=== PATIENT | female | born 1940 | race Caucasian/White ===

== ENCOUNTER 2017-03-24 12:19 | Emergency (ER) | payer MEDICARE, BC ==
[2017-03-24] MEDS ORDERED: Sodium Chloride 0.9% 10 ML Syringe FLUSH PRN (12:34)
[2017-03-24 12:46] VITALS: BP 160/92
--- NOTE | 2017-03-24 13:10 | CT ---
Head CT Technique: Multiple axial sections through the brain were obtained. Intravenous contrast was not utilized. Comparison: No previous intracranial imaging. Findings: Ventricles along with basal cisterns and sulci over the convexities are mildly prominent. No abnormal parenchymal densities are seen. No evidence of intracranial hemorrhage. No midline shift or mass effect is seen. Bone window settings were reviewed which shows no acute calvarial abnormality. Fluid is seen within the right sphenoid sinus with opacification of the left sphenoid sinus. Mild mucosal thickening is seen within the ethmoid sinuses. Atherosclerotic calcification is seen within the carotid siphon. Impression: 1. Sinus findings. Fluid within the sphenoid sinus could possibly represent change from acute sinusitis. 2. Mild senescent change. 3. No acute intracranial abnormality is seen. Diagnostic code #3
--- NOTE | 2017-03-24 13:30 | CR ---
Pelvis and left hip: AP view of the pelvis was obtained as well as AP and frog-leg lateral views of the left hip. Comparison: Previous right hip and pelvis study of 10/02/13. Mild joint space narrowing is seen within both hips. Findings are stable from prior exam. Findings are worse on the right side. Minimal sclerosis is seen within the inferior sacroiliac joints which is stable. No acute fracture or other bony abnormality is seen. Impression: 1. Slight degenerative change. Nothing acute is appreciated on AP pelvis or on two-view left hip exam. Diagnostic code #2
--- NOTE | 2017-03-24 15:04 | EDM.PDOC ---
ED HPI GENERAL MEDICAL PROBLEM - General Chief Complaint: Neurological Problem Stated Complaint: LEG PAIN Time Seen by Provider: 03/24/17 12:35 Source of Information: Reports: Patient, Family History Limitations: Reports: No Limitations - History of Present Illness INITIAL COMMENTS - FREE TEXT/NARRATIVE: The patient presents with left hip pain. She got up this morning and her left leg was weak and gave out. A stroke alert was called. Her last time know well was 10pm last night 03/23/17. She fell and hurt her left hip. She did not hit her head. She has no neck pain. She has no chest pain or shortness of breath. She has no abdominal pain, nausea or vomiting. She has no fever, chills, cough or dysuria. She has no history of stroke. Onset: Sudden Duration: Hour(s): Location: Reports: Lower Extremity, Left (hip) Quality: Reports: Sharp Severity: Moderate Improves with: Reports: Immobilization Worsens with: Reports: Movement Context: Reports: Activity (Getting out of bed she fell) Associated Symptoms: Denies: Chest Pain, Cough, Fever/Chills, Headaches, Nausea/ Vomiting, Shortness of Breath Left Leg Pain Score (Numeric/FACES): 8 - Related Data Allergies Allergy/AdvReac Type Severity Reaction Status Date / Time alendronate sodium Allergy Hives Verified 02/19/14 14:45 [From Fosamax] Home Meds: Home Meds Acetaminophen [Tylenol Arthritis Pain] 650 mg PO Q6H 10/02/13 [History] Aspirin [Shira Chewable] 81 mg PO DAILY 10/02/13 [History] Donepezil [Aricept] 10 mg PO DAILY 10/02/13 [History] Levothyroxine [Synthroid] 50 mcg PO ACBRK 10/02/13 [History] Sertraline [Zoloft] 50 mg PO DAILY 10/02/13 [History] Simvastatin [Zocor] 20 mg PO BEDTIME 10/02/13 [History] Triamterene/Hydrochlorothiazid [Triamterene-HCTZ 37.5-25 MG] 0.5 tab PO DAILY [History] Vitamin B Complex 1,000 mcg PO DAILY 10/02/13 [History] Metoprolol Succinate [Toprol XL] 50 mg PO DAILY #30 tab.sr.24h 10/03/13 [Rx] Levothyroxine [Synthroid] 100 mcg PO DAILY 03/24/17 [History] Melatonin [Melatin] 3 mg PO BEDTIME 03/24/17 [History] Memantine HCl [Namenda Xr] 28 mg PO BEDTIME 03/24/17 [History] Nitrofurantoin Zavala/Macrocryst [Macrobid] 100 mg PO BID #10 cap 03/24/17 [Rx] traMADol [Ultram] 50 mg PO BEDTIME 03/24/17 [History] Past Medical History HEENT History: Reports: Impaired Vision Cardiovascular History: Reports: High Cholesterol, Hypertension, [place] Respiratory History: Reports: Bronchitis, Recurrent Genitourinary History: Reports: Chronic Renal Insuffiency, UTI, Recurrent Other Genitourinary History: foes to [facility] nephology Musculoskeletal History: Reports: Arthritis, Back Pain, Chronic Other Musculoskeletal History: Dr. Coon give her injections to the right side-sacral illiac Psychiatric History: Reports: Anxiety, Depression Endocrine/Metabolic History: Reports: Hypoparathyroidism Oncologic (Cancer) History: Reports: Breast - Past Surgical History HEENT Surgical History: Reports: Cataract Surgery, Tonsillectomy Female Surgical History: Reports: Mastectomy Other Female Surgeries/Procedures: left side nov 2015-cancer;did not do chemo or radiation. Social & Family History - Tobacco Use Smoking Status *Q: Never Smoker - Caffeine Use Caffeine Use: Reports: Coffee, Tea - Alcohol Use Days Per Week of Alcohol Use: 0 - Recreational Drug Use Recreational Drug Use: No ED ROS GENERAL - Review of Systems Review Of Systems: See Below Constitutional: Reports: No Symptoms HEENT: Reports: No Symptoms Respiratory: Reports: No Symptoms Cardiovascular: Reports: No Symptoms Endocrine: Reports: No Symptoms GI/Abdominal: Reports: No Symptoms : Reports: No Symptoms Musculoskeletal: Reports: Joint Pain (Left hip) Skin: Reports: No Symptoms Neurological: Reports: No Symptoms ED EXAM, NEURO - Physical Exam Exam: See Below Exam Limited By: No Limitations General Appearance: Alert, No Apparent Distress Ears: Normal External Exam Nose: Normal Inspection Head Exam: Atraumatic, Normocephalic Neck: Normal Inspection Respiratory/Chest: No Respiratory Distress, Lungs Clear, Normal Breath Sounds Cardiovascular: Regular Rate, Rhythm, No Edema, No Murmur GI/Abdominal: Soft, Non-Tender, No Organomegaly, No Mass Neurological: Alert, No Motor/Sensory Deficits, Oriented x 3 Extremities: Other (Pain upon palpation to the left hip) EKG INTERPRETATION EKG Date: 03/24/17 Time: 12:42 Rhythm: NSR Rate (Beats/Min): 65 [place]: Normal P-Wave: Present QRS: Normal ST-T: Depressed (ST depression anterolateral leads) QT: Normal Comparison: No Change Course - Vital Signs Last Recorded V/S: Last Vital Signs Temp 99.1 F 03/24/17 12:42 Pulse 64 03/24/17 12:42 Resp 20 03/24/17 12:42 BP 160/92 H 03/24/17 12:42 Pulse Ox 100 03/24/17 12:42 - Orders/Labs/Meds Orders: Active Orders 24 hr Category Date Time Status Cardiac Monitoring [RC] . DIRECTED Care 03/24/17 12:34 Active EKG Documentation Completion [RC] STAT Care 03/24/17 12:35 Active Peripheral IV Care [RC] . DIRECTED Care 03/24/17 12:35 Active CULTURE URINE [RM] Stat Lab 03/24/17 15:18 Uncollected Sodium Chloride 0.9% [Saline Flush] Med 03/24/17 12:34 Active 10 ml FLUSH ASDIRECTED PRN Peripheral IV Insertion Adult [OM.PC] Stat Oth 03/24/17 12:34 Ordered Medication Orders Sodium Chloride (Saline Flush) 10 ml FLUSH ASDIRECTED PRN PRN Reason: Keep Vein Open Last Admin: 03/24/17 13:21 Dose: 10 ml Labs: Laboratory Tests 03/24/17 03/24/17 03/24/17 Range/Units 13:15 13:15 13:15 WBC 7.01 (3.98-10.04) K/mm3 RBC 4.51 (3.98-5.22) M/mm3 Hgb 13.7 (11.2-15.7) gm/L Hct 40.7 (34.1-44.9) % MCV 90.2 (79.4-94.8) fl MCH 30.4 (25.6-32.2) pg MCHC 33.7 (32.2-35.5) g/dl RDW Std Deviation 46.8 H (36.4-46.3) fL Plt Count 152 L (182-369) K/mm3 MPV 9.3 L (9.4-12.3) fl Neut % (Auto) 50.1 (34.0-71.1) % Lymph % (Auto) 34.0 (19.3-51.7) % Zavala % (Auto) 13.1 H (4.7-12.5) % Eos % (Auto) 2.1 (0.7-5.8) Baso % (Auto) 0.6 (0.1-1.2) % Neut # (Auto) 3.51 (1.56-6.13) K/mm3 Lymph # (Auto) 2.38 (1.18-3.74) K/mm3 Zavala # (Auto) 0.92 H (0.24-0.36) K/mm3 Eos # (Auto) 0.15 (0.04-0.36) K/mm3 Baso # (Auto) 0.04 (0.01-0.08) K/mm3 PT 10.3 (8.0-13.0) SECONDS INR 0.95 APTT 24 (22-36) SECONDS Sodium 141 (136-145) mEq/L Potassium 3.4 L (3.5-5.1) mEq/L Chloride 106 (98-107) mEq/L Carbon Dioxide 24 (21-32) mEq/L Anion Gap 14.4 (5-15) BUN 19 H (7-18) mg/dL Creatinine 1.5 H (0.55-1.02) mg/dL Est Cr Clr Drug Dosing 23.32 mL/min Estimated GFR (MDRD) 34 (>60) mL/min BUN/Creatinine Ratio 12.7 L (14-18) Glucose 83 (83-115) mg/dL Calcium 9.4 (8.5-10.1) mg/dL Total Bilirubin 0.7 (0.2-1.0) mg/dL AST 23 (15-37) U/L ALT 27 (14-59) U/L Alkaline Phosphatase 84 (46-116) U/L Troponin I < 0.017 (0.00-0.056) ng/mL Total Protein 6.8 (6.4-8.2) g/dl Albumin 3.4 (3.4-5.0) g/dl Globulin 3.4 gm/dL Albumin/Globulin Ratio 1.0 (1-2) Urine Color (Yellow) Urine Appearance (Clear) Urine pH (5.0-8.0) Ur Specific [place] (1.005-1.030) Urine Protein (Negative) Urine Glucose (UA) (Negative) Urine Ketones (Negative) Urine Occult Blood (Negative) Urine Nitrite (Negative) Urine Bilirubin (Negative) Urine Urobilinogen (0.2-1.0) Ur Leukocyte Esterase (Negative) Urine RBC (0-5) /hpf Urine WBC (0-5) /hpf Urine WBC Clumps (NOT SEEN) /hpf Ur Epithelial Cells (0-5) /hpf Urine Bacteria (FEW) /hpf Urine Mucus (FEW) /hpf 03/24/17 Range/Units 14:46 WBC (3.98-10.04) K/mm3 RBC (3.98-5.22) M/mm3 Hgb (11.2-15.7) gm/L Hct (34.1-44.9) % MCV (79.4-94.8) fl MCH (25.6-32.2) pg MCHC (32.2-35.5) g/dl RDW Std Deviation (36.4-46.3) fL Plt Count (182-369) K/mm3 MPV (9.4-12.3) fl Neut % (Auto) (34.0-71.1) % Lymph % (Auto) (19.3-51.7) % [place] % (Auto) (4.7-12.5) % Eos % (Auto) (0.7-5.8) Baso % (Auto) (0.1-1.2) % Neut # (Auto) (1.56-6.13) K/mm3 Lymph # (Auto) (1.18-3.74) K/mm3 [place] # (Auto) (0.24-0.36) K/mm3 Eos # (Auto) (0.04-0.36) K/mm3 Baso # (Auto) (0.01-0.08) K/mm3 PT (8.0-13.0) SECONDS INR APTT (22-36) SECONDS Sodium (136-145) mEq/L Potassium (3.5-5.1) mEq/L Chloride (98-107) mEq/L Carbon Dioxide (21-32) mEq/L Anion Gap (5-15) BUN (7-18) mg/dL Creatinine (0.55-1.02) mg/dL Est Cr Clr Drug Dosing mL/min Estimated GFR (MDRD) (>60) mL/min BUN/Creatinine Ratio (14-18) Glucose (83-115) mg/dL Calcium (8.5-10.1) mg/dL Total Bilirubin (0.2-1.0) mg/dL AST (15-37) U/L ALT (14-59) U/L Alkaline Phosphatase (46-116) U/L Troponin I (0.00-0.056) ng/mL Total Protein (6.4-8.2) g/dl Albumin (3.4-5.0) g/dl Globulin gm/dL Albumin/Globulin Ratio (1-2) Urine Color Yellow (Yellow) Urine Appearance Clear (Clear) Urine pH 8.5 H (5.0-8.0) Ur Specific [place] 1.020 (1.005-1.030) Urine Protein Negative (Negative) Urine Glucose (UA) Negative (Negative) Urine Ketones Negative (Negative) Urine Occult Blood Negative (Negative) Urine Nitrite Negative (Negative) Urine Bilirubin Negative (Negative) Urine Urobilinogen 0.2 (0.2-1.0) Ur Leukocyte Esterase Trace H (Negative) Urine RBC 0-5 (0-5) /hpf Urine WBC 5-10 H (0-5) /hpf Urine WBC Clumps Rare (NOT SEEN) /hpf Ur Epithelial Cells 0-5 (0-5) /hpf Urine Bacteria Few (FEW) /hpf Urine Mucus Not seen (FEW) /hpf Meds: Medications Generic Name Dose Route Start Last Admin Trade Name Freq PRN Reason Stop Dose Admin Sodium Chloride 10 ml 03/24/17 12:34 03/24/17 13:21 Saline Flush FLUSH 10 ml ASDIRECTED PRN Administration Keep Vein Open - Re-Assessments/Exams Free Text/Narrative Re-Assessment/Exam: 03/24/17 15:04 A stroke alert was called. The patient was last known well at 10pm last night. I ordered an IV saline lock, EKG, CT of her head, x-ray of left hip and pelvis , labs and UA. 03/24/17 15:[address] looks good. She has some sinus findings. Fluid within the sphenoid sinus could possibly represent change from acute sinusitis. Mild senescent changes. No acute intracranial abnormality is seen. Her EKG shows minimal ST depression to the anterolateral leads. This was seen on a prior EKG. Her CBC looks good. Her PT, INR and PTT all look good. Her K was a little low at 3.4. Her creatinine was elevated at 1.5. Her troponin was negative. Her UA shows a UTI. I will get her on macrobid and the x-ray of her left hip shows no fracture. She got up and walked to the bathroom and she did well. I will discharge her home. Departure - Departure Time of Disposition: 15:25 Disposition: Home, Self-Care 01 Condition: Good Clinical Impression: Fall Qualifiers: Encounter type: initial encounter Qualified Code(s): W19.XXXA - Unspecified fall, initial encounter Contusion of left hip Qualifiers: Encounter type: initial encounter Qualified Code(s): S70.02XA - Contusion of left hip, initial encounter UTI (urinary tract infection) Qualifiers: Urinary tract infection type: site unspecified Hematuria presence: without hematuria Qualified Code(s): N39.0 - Urinary tract infection, site not specified - Discharge Information Prescriptions: Nitrofurantoin Zavala/Macrocryst [Macrobid] 100 mg PO BID #10 cap Referrals: Flower Johnson, [employer] [Primary Care Provider] - 1 Week Forms: ED Department Discharge Additional Instructions: Take the macrobid 2 times per day for 5 days. Take tylenol or motrin for pain. Follow up with Flower if you do not feel better next week. Please return if you are worse. - My Orders Last 24 Hours: My Active Orders 03/24/17 12:34 Cardiac Monitoring [RC] . DIRECTED Sodium Chloride 0.9% [Saline Flush] 10 ml FLUSH ASDIRECTED PRN Peripheral IV Insertion Adult [OM.PC] Stat 03/24/17 12:35 EKG Documentation Completion [RC] STAT Peripheral IV Care [RC] . DIRECTED 03/24/17 15:18 CULTURE URINE [RM] Stat - Assessment/Plan Last 24 Hours: My Active Orders 03/24/17 12:34 Cardiac Monitoring [RC] . DIRECTED Sodium Chloride 0.9% [Saline Flush] 10 ml FLUSH ASDIRECTED PRN Peripheral IV Insertion Adult [OM.PC] Stat 03/24/17 12:35 EKG Documentation Completion [RC] STAT Peripheral IV Care [RC] . DIRECTED 03/24/17 15:18 CULTURE URINE [RM] Stat
== END 2017-03-24 15:50 | disposition home or self-care (01) ==
LOC: JD.ED 12:19
DX: S70.02XA Contusion of left hip, initial encounter (principal); N39.0 Urinary tract infection, site not specified; I10 Essential (primary) hypertension; Z79.2 Long term (current) use of antibiotics; Z88.8 Allergy status to other drugs, medicaments and biological substances; Z79.899 Other long term (current) drug therapy; W19.XXXA Unspecified fall, initial encounter
CPT/HCPCS: 36415; 70450; 73502; 80053; 81001; 84484; 85025; 85610; 85730; 87086; 93005; 99284; J7050; 93010; 99283-25

== ENCOUNTER 2017-09-08 19:58 | Observation (INO) | payer MEDICARE, BC ==
--- NOTE | 2017-09-08 20:40 | EDM.PDOC ---
ED HPI GENERAL MEDICAL PROBLEM - General Chief Complaint: Chest Pain Stated Complaint: RIGHT SIDE CHEST PAIN UNDER HER RIB TO HER BACK Time Seen by Provider: 09/08/17 20:11 Source of Information: Reports: Patient, Family (Daughter) History Limitations: Reports: Altered Mental Status (Dementia) - History of Present Illness INITIAL COMMENTS - FREE TEXT/NARRATIVE: The patient states that she developed pain to the right side of her chest, front and back, yesterday. Initially was minor, but has gotten worse. It waxes and wanes. The pain is made worse with deep breaths or movement of her right upper extremity, although her right upper extremity itself does not hurt. No recent injury. No recent fever. No recent cough. No recent dyspnea. No recent palpitations. No prior similar symptoms. The patient has not tried any home remedies or medicines. The patient's PCP is Flower Johnson. Right Chest Pain Score (Numeric/FACES): 8 - Related Data Allergies Allergy/AdvReac Type Severity Reaction Status Date / Time alendronate sodium Allergy Hives Verified 02/19/14 14:45 [From Fosamax] Home Meds: Home Meds Acetaminophen [Tylenol Arthritis Pain] 1,300 mg PO DAILY 10/02/13 [History] Aspirin [Shira Chewable] 81 mg PO DAILY 10/02/13 [History] Donepezil [Aricept] 10 mg PO DAILY 10/02/13 [History] Sertraline [Zoloft] 50 mg PO DAILY 10/02/13 [History] Simvastatin [Zocor] 20 mg PO BEDTIME 10/02/13 [History] Triamterene/Hydrochlorothiazid [Triamterene-HCTZ 37.5-25 MG] 1 tab PO DAILY 05/17 [History] Vitamin B Complex 1,000 mcg PO DAILY 10/02/13 [History] Levothyroxine [Synthroid] 100 mcg PO DAILY 03/24/17 [History] Melatonin [Melatin] 3 mg PO BEDTIME 03/24/17 [History] Memantine HCl [Namenda Xr] 28 mg PO BEDTIME 03/24/17 [History] traMADol [Ultram] 50 mg PO BEDTIME 03/24/17 [History] amLODIPine Besylate [Amlodipine Besylate] 10 mg PO DAILY 09/08/17 [History] Past Medical History HEENT History: Reports: Impaired Vision Cardiovascular History: Reports: High Cholesterol, Hypertension Genitourinary History: Reports: Chronic Renal Insuffiency Musculoskeletal History: Reports: Arthritis, Back Pain, Chronic (DDD) Psychiatric History: Reports: Anxiety, Depression Endocrine/Metabolic History: Reports: Hypothyroidism, Obesity/BMI 30+ Oncologic (Cancer) History: Reports: Breast (left) - Past Surgical History HEENT Surgical History: Reports: Cataract Surgery, Tonsillectomy Female Surgical History: Reports: D&C (x 1) Musculoskeletal Surgical History: Reports: Shoulder Surgery (right rotator cuff repair, open) Oncologic Surgical History: Reports: Mastectomy (left, November 2015) Social & Family History - Tobacco Use Smoking Status *Q: Never Smoker - Caffeine Use Caffeine Use: Reports: Coffee, Tea - Alcohol Use Alcohol Use History: Yes Alcohol Use Frequency: Rarely - Recreational Drug Use Recreational Drug Use: No - Living Situation & Occupation Living situation: Reports: , Alone Occupation: Retired ED ROS GENERAL - Review of Systems Review Of Systems: ROS reveals no pertinent complaints other than HPI. ED EXAM, GENERAL - Physical Exam Exam: See Below Exam Limited By: No Limitations General Appearance: Alert, WD/WN, Mild Distress (Appears uncomfortable) Eye Exam: Bilateral Eye: Normal Inspection Ears: Normal External Exam, Hearing Grossly Normal Nose: Normal Inspection, No Blood Throat/Mouth: Normal Inspection, Normal Lips, Normal Voice, No Airway Compromise Head: Atraumatic, Normocephalic Neck: Normal Inspection, Full Range of Motion Respiratory/Chest: No Respiratory Distress, Lungs Clear, Normal Breath Sounds, No Accessory Muscle Use, Chest Non-Tender (The patient confirms that the pain is where palpated on the right side of her chest, anterior and posterior, but minimal, if any, actual tenderness to palpation), Crackles (faint, bibasilar), Other (S/P left mastectomy). No: Rhonchi, Wheezing Cardiovascular: Normal Peripheral Pulses, Regular Rate, Rhythm, No Edema, No Gallop, No JVD, No Murmur, No Rub Peripheral Pulses: 4+: Radial (L), Radial (R) GI/Abdominal: Normal Bowel Sounds, Soft, Non-Tender, No Organomegaly, No Distention, No Abnormal Bruit, No Mass, Other (Obese) (Female) Exam: Deferred Rectal (Female) Exam: Deferred Back Exam: Normal Inspection, Full Range of Motion, NT Extremities: Normal Inspection, Normal Range of Motion, No Pedal Edema, Normal Capillary Refill Neurological: Alert, Oriented, Normal Cognition, No Motor/Sensory Deficits Psychiatric: Normal Affect Skin Exam: Warm, Dry, Intact, Normal Color, No Rash EKG INTERPRETATION EKG Date: 09/08/17 Time: 20:16 Rhythm: NSR Rate (Beats/Min): 76 [place]: Normal P-Wave: Present QRS: Normal ST-T: Normal QT: Normal Comparison: No Change (03/24/2017) Course - Vital Signs Last Recorded V/S: Last Vital Signs Temp 37.7 C 09/09/17 00:35 Pulse 76 09/08/17 20:07 Resp 21 H 09/08/17 20:07 BP 166/70 H 09/08/17 20:07 Pulse Ox 98 09/08/17 20:07 - Orders/Labs/Meds Orders: Active Orders 24 hr Category Date Time Status EKG Documentation Completion [RC] ASDIRECTED Care 09/08/17 20:20 Active Ang Chest [CT] Stat Exams 09/08/17 21:51 Taken Chest 2V [CR] Stat Exams 09/08/17 20:32 Taken Sodium Chloride 0.9% [Normal Saline] 1,000 ml Med 09/08/17 22:00 Active IV ASDIRECTED Sodium Chloride 0.9% [Normal Saline] 100 ml Med 09/08/17 23:15 Active IV ASDIRECTED Sodium Chloride 0.9% [Saline Flush] Med 09/08/17 23:11 Active 10 ml FLUSH ONETIME PRN EKG 12 Lead [EK] Stat Ther 09/08/17 20:20 Ordered Medication Orders Sodium Chloride (Normal Saline) 1,000 mls @ 150 mls/hr IV ASDIRECTED JUAN CARLOS Last Admin: 09/08/17 22:18 Dose: 150 mls/hr Sodium Chloride (Normal Saline) 100 mls @ 65 mls/hr IV ASDIRECTED JUAN CARLOS Last Admin: 09/08/17 23:30 Dose: 65 mls/hr Sodium Chloride (Saline Flush) 10 ml FLUSH ONETIME PRN PRN Reason: IV FLUSH Last Admin: 09/08/17 23:30 Dose: 10 ml Labs: Laboratory Tests 06/08/18 06/08/18 06/08/18 Range/Units 20:57 20:57 20:57 WBC 8.49 (3.98-10.04) K/mm3 RBC 4.50 (3.98-5.22) M/mm3 Hgb 13.5 (11.2-15.7) gm/L Hct 40.8 (34.1-44.9) % MCV 90.7 (79.4-94.8) fl MCH 30.0 (25.6-32.2) pg MCHC 33.1 (32.2-35.5) g/dl RDW Std Deviation 46.4 H (36.4-46.3) fL Plt Count 170 L (182-369) K/mm3 MPV 9.5 (9.4-12.3) fl Neutrophils % (Manual) 64 H (40-60) % Band Neutrophils % 0 (0-10) % Lymphocytes % (Manual) 28 (20-40) % Atypical Lymphs % 0 % Monocytes % (Manual) 4 (2-10) % Eosinophils % (Manual) 2 (0.7-5.8) % Basophils % (Manual) 2 H (0.1-1.2) Platelet Estimate Adequate RBC Morph Comment Normal PT 10.5 (9.5-12.1) SECONDS INR 0.96 APTT 25 (24-31) SECONDS D-Dimer, Quantitative 0.51 H (0.19-0.50) mg/L Sodium 143 (136-145) mEq/L Potassium 3.0 L (3.5-5.1) mEq/L Chloride 104 (98-107) mEq/L Carbon Dioxide 28 (21-32) mEq/L Anion Gap 14.0 (5-15) BUN 41 H (7-18) mg/dL Creatinine 2.1 H (0.55-1.02) mg/dL Est Cr Clr Drug Dosing 17.46 mL/min Estimated GFR (MDRD) 23 (>60) mL/min BUN/Creatinine Ratio 19.5 H (14-18) Glucose 114 (83-115) mg/dL Calcium 9.3 (8.5-10.1) mg/dL Total Bilirubin 0.4 (0.2-1.0) mg/dL AST 20 (15-37) U/L ALT 29 (14-59) U/L Alkaline Phosphatase 96 (46-116) U/L Troponin I < 0.017 (0.00-0.056) ng/mL Total Protein 7.6 (6.4-8.2) g/dl Albumin 3.4 (3.4-5.0) g/dl Globulin 4.2 gm/dL Albumin/Globulin Ratio 0.8 L (1-2) Urine Color (Yellow) Urine Appearance (Clear) Urine pH (5.0-8.0) Ur Specific [place] (1.005-1.030) Urine Protein (Negative) Urine Glucose (UA) (Negative) Urine Ketones (Negative) Urine Occult Blood (Negative) Urine Nitrite (Negative) Urine Bilirubin (Negative) Urine Urobilinogen (0.2-1.0) Ur Leukocyte Esterase (Negative) Urine RBC (0-5) /hpf Urine WBC (0-5) /hpf Ur Epithelial Cells (0-5) /hpf Amorphous Sediment (NOT SEEN) /hpf Urine Bacteria (FEW) /hpf Urine Mucus (FEW) /hpf 09/09/17 Range/Units 00:01 WBC (3.98-10.04) K/mm3 RBC (3.98-5.22) M/mm3 Hgb (11.2-15.7) gm/L Hct (34.1-44.9) % MCV (79.4-94.8) fl MCH (25.6-32.2) pg MCHC (32.2-35.5) g/dl RDW Std Deviation (36.4-46.3) fL Plt Count (182-369) K/mm3 MPV (9.4-12.3) fl Neutrophils % (Manual) (40-60) % Band Neutrophils % (0-10) % Lymphocytes % (Manual) (20-40) % Atypical Lymphs % % Monocytes % (Manual) (2-10) % Eosinophils % (Manual) (0.7-5.8) % Basophils % (Manual) (0.1-1.2) Platelet Estimate RBC Morph Comment PT (9.5-12.1) SECONDS INR APTT (24-31) SECONDS D-Dimer, Quantitative (0.19-0.50) mg/L Sodium (136-145) mEq/L Potassium (3.5-5.1) mEq/L Chloride (98-107) mEq/L Carbon Dioxide (21-32) mEq/L Anion Gap (5-15) BUN (7-18) mg/dL Creatinine (0.55-1.02) mg/dL Est Cr Clr Drug Dosing mL/min Estimated GFR (MDRD) (>60) mL/min BUN/Creatinine Ratio (14-18) Glucose (83-115) mg/dL Calcium (8.5-10.1) mg/dL Total Bilirubin (0.2-1.0) mg/dL AST (15-37) U/L ALT (14-59) U/L Alkaline Phosphatase (46-116) U/L Troponin I (0.00-0.056) ng/mL Total Protein (6.4-8.2) g/dl Albumin (3.4-5.0) g/dl Globulin gm/dL Albumin/Globulin Ratio (1-2) Urine Color Yellow (Yellow) Urine Appearance Clear (Clear) Urine pH 7.0 (5.0-8.0) Ur Specific [place] 1.015 (1.005-1.030) Urine Protein Negative (Negative) Urine Glucose (UA) Negative (Negative) Urine Ketones Negative (Negative) Urine Occult Blood Negative (Negative) Urine Nitrite Negative (Negative) Urine Bilirubin Negative (Negative) Urine Urobilinogen 0.2 (0.2-1.0) Ur Leukocyte Esterase 2+ H (Negative) Urine RBC 0-5 (0-5) /hpf Urine WBC 5-10 H (0-5) /hpf Ur Epithelial Cells 0-5 (0-5) /hpf Amorphous Sediment Moderate H (NOT SEEN) /hpf Urine Bacteria Rare (FEW) /hpf Urine Mucus Not seen (FEW) /hpf Meds: Medications Generic Name Dose Route Start Last Admin Trade Name Freq PRN Reason Stop Dose Admin Sodium Chloride 1,000 mls @ 150 mls/hr 09/08/17 22:00 09/08/17 22:18 Normal Saline IV 150 mls/hr ASDIRECTED JUAN CARLOS Administration Sodium Chloride 100 mls @ 65 mls/hr 09/08/17 23:15 09/08/17 23:30 Normal Saline IV 65 mls/hr ASDIRECTED JUAN CARLOS Administration Sodium Chloride 10 ml 09/08/17 23:11 09/08/17 23:30 Saline Flush FLUSH 10 ml ONETIME PRN Administration IV FLUSH Discontinued Medications Generic Name Dose Route Start Last Admin Trade Name Freq PRN Reason Stop Dose Admin Iopamidol 100 ml 09/08/17 23:11 09/08/17 23:30 Isovue-370 (76%) IVPUSH 09/08/17 23:12 100 ml ONETIME ONE Administration Orphenadrine Citrate 100 mg 09/08/17 23:40 09/08/17 23:51 Norflex PO 09/08/17 23:41 100 mg ONETIME STA Administration Orphenadrine Citrate Confirm 09/08/17 23:52 Norflex Administered 09/08/17 23:53 Dose 100 mg .ROUTE .STK-MED ONE Potassium Chloride 40 meq 09/08/17 21:52 09/08/17 22:09 Klor-Con M20 PO 09/08/17 21:53 40 meq ONETIME ONE Administration - Re-Assessments/Exams Free Text/Narrative Re-Assessment/Exam: 09/08/17 20:35 While the patient has pain to the right side of her chest, she is not really tender to palpation where she has pain. The fact that her pain is pleuritic and made worse with right upper extremity movement raises the concern of a pneumothorax or, possibly, a pulmonary embolus. The patient was offered pain medication during her workup, but declined. 09/08/17 20:58 2-view chest radiograph appears to be grossly normal. Cardiac silhouette is within normal limits. No pulmonary vascular congestion. No pleural effusions. No focal infiltrate. No pneumothorax. Formal read per the Radiologist pending. 09/08/17 21:59 The patient's potassium returned low at 3.0, and her BUN/Cr are elevated at 41/ 2.1. They were 29/1.8 on 06/12/2017, and the patient has known chronic kidney disease. Her platelets returned low at 170, and her d-dimer slightly elevated at 0.51, well within expected range for patient of this age with renal dysfunction. The remainder of her workup so far is unremarkable, and does not explain the cause of her right-sided chest pain. I very much doubt musculoskeletal etiology, as there is no one muscle that involves the front and the back of the chest. I therefore recommended a more thorough evaluation with a CT of the chest with IV contrast. I explained that the patient's renal function will likely worsen for 1 week, and that she will need to have a chemistry panel repeated on 09/11/2017, to make sure that she has not developed hyperkalemia or acidosis. The patient and her daughter expressed understanding, and the patient agreed to proceed with the study. 09/09/17 00:02 CT angiogram of the chest is read by [facility] as: No evidence for pulmonary emboli Small hiatal hernia Mild bibasal pulmonary traverses 09/09/17 00:05 Notified by Tenisha SHEPHERD that the patient has developed a temperature up to 101. The patient has provided a urine sample by clean catch. 09/09/17 00:59 Test results discussed with the patient and her daughter. The patient's daughter states that the patient is feeling much better following the Norflex, however, Norflex does not usually have much of an effect until about 12 hours after the first dose, therefore it is questionable if it could have had such an effect so quickly. Today's workup is essentially negative, and does not explain the cause of the patient's symptoms, however, the patient's daughter does not feel that the patient is fit to be discharged home, particularly since she has advanced Alzheimer's dementia. I will contact Dr. Hobbs to see if he would be willing to place the patient into observation. 09/09/17 01:[address] Hobbs at 01:01. He agrees to place the patient into observation. I will write bridge orders. Departure - Departure Time of Disposition: 01:04 Disposition: Refer to Observation Clinical Impression: Chest pain of unknown etiology, Chronic kidney disease, Hypokalemia - Discharge Information - My Orders Last 24 Hours: My Active Orders 09/08/17 20:20 EKG Documentation Completion [RC] ASDIRECTED EKG 12 Lead [EK] Stat 09/08/17 20:32 Chest 2V [CR] Stat 09/08/17 21:51 Ang Chest [CT] Stat 09/08/17 22:00 Sodium Chloride 0.9% [Normal Saline] 1,000 ml IV ASDIRECTED 09/08/17 23:11 Sodium Chloride 0.9% [Saline Flush] 10 ml FLUSH ONETIME PRN 09/08/17 23:15 Sodium Chloride 0.9% [Normal Saline] 100 ml IV ASDIRECTED - Assessment/Plan Last 24 Hours: My Active Orders 09/08/17 20:20 EKG Documentation Completion [RC] ASDIRECTED EKG 12 Lead [EK] Stat 09/08/17 20:32 Chest 2V [CR] Stat 09/08/17 21:51 Ang Chest [CT] Stat 09/08/17 22:00 Sodium Chloride 0.9% [Normal Saline] 1,000 ml IV ASDIRECTED 09/08/17 23:11 Sodium Chloride 0.9% [Saline Flush] 10 ml FLUSH ONETIME PRN 09/08/17 23:15 Sodium Chloride 0.9% [Normal Saline] 100 ml IV ASDIRECTED
[2017-09-08] MEDS ORDERED: Potassium Chloride 20 MEQ Tab.ER PO ONE (21:52)
[2017-09-08] MEDS ORDERED: Sodium Chloride 0.9% 1,000 ML IV SCH (22:00)
[2017-09-08] MEDS ORDERED: Sodium Chloride 0.9% 10 ML Syringe FLUSH PRN (23:11)
[2017-09-08] MEDS ORDERED: Iopamidol 755 Mg/ML 100 ML Bottle IVPUSH ONE (23:11)
[2017-09-08] MEDS ORDERED: Sodium Chloride 0.9% 100 ML IV SCH (23:15)
[2017-09-08] MEDS ORDERED: Orphenadrine 100 MG Tab.ER PO STA (23:40)
[2017-09-08] MEDS ORDERED: Orphenadrine 100 MG Tab.ER ONE (23:52)
[2017-09-09] MEDS ORDERED: HYDROmorphone 0.5 MG/0.5 ML SYRINGE IVPUSH PRN ×2 (03:27→07:10)
[2017-09-09] MEDS: Sodium Chloride 0.9% 1,000 ML IV SCH ×2 (06:28→16:34)
--- NOTE | 2017-09-09 07:07 | PCM.HP ---
H&P History of Present Illness - General Date of Service: 09/09/17 Admit Problem/Dx: Admission Diagnosis/Problem Admission Diagnosis/Problem Chest pain Source of Information: Patient, Old Records, Provider, RN Notes Reviewed History Limitations: Reports: No Limitations - History of Present Illness Initial Comments - Free Text/Narative: This is a 77 yo elderly white female with past medical hx/o Impaired Vision, HTN , HLD, CKD Stage, OA/DJD, Chronic Back Pain, Hypothyroidism, Anxiety, Depression and Obesity with BMI of 30+ who comes in for evaluation of sudden right sided chest pain with radiation to back that started yesterday. She carries a hx/o chronic back back s/p shoulder surgery. He pain is usually waxes and wanes in nature. Her pain sharp and made worse with movement and by taking deep breaths. She denies and recent trauma, injury or falls. Patient is on Tramadol but w/o much relief. Her initial work up in the emergency department shows a CBC remarkable for RDW of 46.4, Platelet count of 170, Neutrophils of 64% and Basophils of 2%. Her chemistry is significant for potassium of 3.0, BUN of 41, and Cr of 2.1. Her coagulation study is remarkable for D-dimer of 0.51. Her UDS is negative for UTI. Her CXR and CTA both show no acute abnormal findings. Her initial troponin level is negative. Patient is being admitted for Chest Pain r/o ACS and Intractable Pain. She is full code. Right Chest Pain Score (Numeric/FACES): 8 right posterior shoulder blade Pain Score (Numeric/FACES): 5 - Related Data Allergies/Adverse Reactions: Allergies Allergy/AdvReac Type Severity Reaction Status Date / Time alendronate sodium Allergy Hives Verified 09/09/17 08:31 [From Fosamax] Home Medications: Home Meds Acetaminophen [Tylenol Arthritis Pain] 1,300 mg PO DAILY 10/02/13 [History] Aspirin [Shira Chewable] 81 mg PO DAILY 10/02/13 [History] Donepezil [Aricept] 10 mg PO DAILY 10/02/13 [History] Simvastatin [Zocor] 20 mg PO BEDTIME 10/02/13 [History] Triamterene/Hydrochlorothiazid [Triamterene-HCTZ 37.5-25 MG] 1 tab PO DAILY 05/17 [History] Vitamin B Complex 1,000 mcg PO DAILY 10/02/13 [History] Melatonin [Melatin] 5 mg PO BEDTIME 03/24/17 [History] Memantine HCl [Namenda Xr] 28 mg PO BEDTIME 03/24/17 [History] traMADol [Ultram] 50 mg PO BEDTIME 03/24/17 [History] amLODIPine Besylate [Amlodipine Besylate] 5 mg PO DAILY 09/08/17 [History] Levothyroxine 125 mcg PO ACBREAKFAST 09/09/17 [History] Sertraline HCl 100 mg PO BEDTIME 09/09/17 [History] Past Medical History HEENT History: Reports: Impaired Vision Cardiovascular History: Reports: High Cholesterol, Hypertension Respiratory History: Reports: Bronchitis, Recurrent Genitourinary History: Reports: Chronic Renal Insuffiency Other Genitourinary History: foes to [facility] Musculoskeletal History: Reports: Arthritis, Back Pain, Chronic (DDD) Other Musculoskeletal History: Dr. Coon give her injections to the right side-sacral illiac Psychiatric History: Reports: Anxiety, Depression Endocrine/Metabolic History: Reports: Hypothyroidism, Obesity/BMI 30+ Oncologic (Cancer) History: Reports: Breast (left) - Past Surgical History HEENT Surgical History: Reports: Cataract Surgery, Tonsillectomy Female Surgical History: Reports: D&C (x 1) Musculoskeletal Surgical History: Reports: Shoulder Surgery (right rotator cuff repair, open) Oncologic Surgical History: Reports: Mastectomy (left, November 2015) Social & Family History - Tobacco Use Smoking Status *Q: Never Smoker Second Hand Smoke Exposure: No - Caffeine Use Caffeine Use: Reports: Coffee, Tea Other Caffeine Use: couple of cups of coffee everyday, sometimes a tea - Recreational Drug Use Recreational Drug Use: No - Living Situation & Occupation Living situation: Reports: , Alone Occupation: Retired H&P Review of Systems - Review of Systems: Review Of Systems: ROS reveals no pertinent complaints other than HPI. Exam - Exam Exam: See Below - Vital Signs Vital Signs: Last Vital Signs Temp 37.7 C 09/09/17 00:35 Pulse 76 09/08/17 20:07 Resp 21 H 09/08/17 20:07 BP 166/70 H 09/08/17 20:07 Pulse Ox 98 09/08/17 20:07 Weight: 81.737 kg - Exam General: Alert, Oriented, Cooperative, Other (Obese). No: Mild Distress HEENT: Conjunctiva Clear, EACs Clear, EOMI, Hearing Intact, Mucosa Moist & [place] , Nares Patent, Normal Nasal Septum, Posterior Pharynx Clear, Pupils Equal, Pupils Reactive Neck: Supple, Trachea Midline, Full Range of Motion. No: JVD Lungs: Normal Respiratory Effort, Decreased Breath Sounds Cardiovascular: Regular Rate, Regular Rhythm, Other (chest tenderness on palpation) GI/Abdominal Exam: Normal Bowel Sounds, Soft, Non-Tender, No Organomegaly, No Distention, No Abnormal Bruit, No Mass (Female) Exam: Deferred Rectal (Female) Exam: Deferred Back Exam: Normal Inspection, Decreased Range of Motion Extremities: Normal Inspection, Normal Range of Motion, Non-Tender, No Pedal Edema, Normal Capillary Refill, Other (Right Shoulder: Limited ROM and Pain with Movement) Peripheral Pulses: 2+: Posterior Tibial (L), Posterior Tibial (R), Dorsalis Pedis (L), Dorsalis Pedis (R) Skin: Warm, Dry, Intact Neuro Extensive - Mental Status: Normal Mood/Affect, Normal Cognition Neuro Extensive - Motor, Sensory, Reflexes: CN II-XII Intact (limited but grossly intact), Normal Gait Psychiatric: Alert, Normal Affect, Normal Mood - Patient Data Lab Results Last 24 hrs: Laboratory Results - last 24 hr 09/08/17 09/08/17 09/08/17 Range/Units 20:57 20:57 20:57 WBC 8.49 (3.98-10.04) K/mm3 RBC 4.50 (3.98-5.22) M/mm3 Hgb 13.5 (11.2-15.7) gm/L Hct 40.8 (34.1-44.9) % MCV 90.7 (79.4-94.8) fl MCH 30.0 (25.6-32.2) pg MCHC 33.1 (32.2-35.5) g/dl RDW Std Deviation 46.4 H (36.4-46.3) fL Plt Count 170 L (182-369) K/mm3 MPV 9.5 (9.4-12.3) fl Neutrophils % (Manual) 64 H (40-60) % Band Neutrophils % 0 (0-10) % Lymphocytes % (Manual) 28 (20-40) % Atypical Lymphs % 0 % Monocytes % (Manual) 4 (2-10) % Eosinophils % (Manual) 2 (0.7-5.8) % Basophils % (Manual) 2 H (0.1-1.2) Platelet Estimate Adequate RBC Morph Comment Normal PT 10.5 (9.5-12.1) SECONDS INR 0.96 APTT 25 (24-31) SECONDS D-Dimer, Quantitative 0.51 H (0.19-0.50) mg/L Sodium 143 (136-145) mEq/L Potassium 3.0 L (3.5-5.1) mEq/L Chloride 104 (98-107) mEq/L Carbon Dioxide 28 (21-32) mEq/L Anion Gap 14.0 (5-15) BUN 41 H (7-18) mg/dL Creatinine 2.1 H (0.55-1.02) mg/dL Est Cr Clr Drug Dosing 17.46 mL/min Estimated GFR (MDRD) 23 (>60) mL/min BUN/Creatinine Ratio 19.5 H (14-18) Glucose 114 (83-115) mg/dL Calcium 9.3 (8.5-10.1) mg/dL Total Bilirubin 0.4 (0.2-1.0) mg/dL AST 20 (15-37) U/L ALT 29 (14-59) U/L Alkaline Phosphatase 96 (46-116) U/L Troponin I < 0.017 (0.00-0.056) ng/mL Total Protein 7.6 (6.4-8.2) g/dl Albumin 3.4 (3.4-5.0) g/dl Globulin 4.2 gm/dL Albumin/Globulin Ratio 0.8 L (1-2) Urine Color (Yellow) Urine Appearance (Clear) Urine pH (5.0-8.0) Ur Specific [place] (1.005-1.030) Urine Protein (Negative) Urine Glucose (UA) (Negative) Urine Ketones (Negative) Urine Occult Blood (Negative) Urine Nitrite (Negative) Urine Bilirubin (Negative) Urine Urobilinogen (0.2-1.0) Ur Leukocyte Esterase (Negative) Urine RBC (0-5) /hpf Urine WBC (0-5) /hpf Ur Epithelial Cells (0-5) /hpf Amorphous Sediment (NOT SEEN) /hpf Urine Bacteria (FEW) /hpf Urine Mucus (FEW) /hpf 09/09/17 Range/Units 00:01 WBC (3.98-10.04) K/mm3 RBC (3.98-5.22) M/mm3 Hgb (11.2-15.7) gm/L Hct (34.1-44.9) % MCV (79.4-94.8) fl MCH (25.6-32.2) pg MCHC (32.2-35.5) g/dl RDW Std Deviation (36.4-46.3) fL Plt Count (182-369) K/mm3 MPV (9.4-12.3) fl Neutrophils % (Manual) (40-60) % Band Neutrophils % (0-10) % Lymphocytes % (Manual) (20-40) % Atypical Lymphs % % Monocytes % (Manual) (2-10) % Eosinophils % (Manual) (0.7-5.8) % Basophils % (Manual) (0.1-1.2) Platelet Estimate RBC Morph Comment PT (9.5-12.1) SECONDS INR APTT (24-31) SECONDS D-Dimer, Quantitative (0.19-0.50) mg/L Sodium (136-145) mEq/L Potassium (3.5-5.1) mEq/L Chloride (98-107) mEq/L Carbon Dioxide (21-32) mEq/L Anion Gap (5-15) BUN (7-18) mg/dL Creatinine (0.55-1.02) mg/dL Est Cr Clr Drug Dosing mL/min Estimated GFR (MDRD) (>60) mL/min BUN/Creatinine Ratio (14-18) Glucose (83-115) mg/dL Calcium (8.5-10.1) mg/dL Total Bilirubin (0.2-1.0) mg/dL AST (15-37) U/L ALT (14-59) U/L Alkaline Phosphatase (46-116) U/L Troponin I (0.00-0.056) ng/mL Total Protein (6.4-8.2) g/dl Albumin (3.4-5.0) g/dl Globulin gm/dL Albumin/Globulin Ratio (1-2) Urine Color Yellow (Yellow) Urine Appearance Clear (Clear) Urine pH 7.0 (5.0-8.0) Ur Specific [place] 1.015 (1.005-1.030) Urine Protein Negative (Negative) Urine Glucose (UA) Negative (Negative) Urine Ketones Negative (Negative) Urine Occult Blood Negative (Negative) Urine Nitrite Negative (Negative) Urine Bilirubin Negative (Negative) Urine Urobilinogen 0.2 (0.2-1.0) Ur Leukocyte Esterase 2+ H (Negative) Urine RBC 0-5 (0-5) /hpf Urine WBC 5-10 H (0-5) /hpf Ur Epithelial Cells 0-5 (0-5) /hpf Amorphous Sediment Moderate H (NOT SEEN) /hpf Urine Bacteria Rare (FEW) /hpf Urine Mucus Not seen (FEW) /hpf Result Diagrams: 09/08/17 20:57 09/09/17 05:40 EKG INTERPRETATION EKG Date: 09/08/17 Time: 20:16 Rhythm: NSR Rate (Beats/Min): 76 [place]: Normal P-Wave: Present QRS: Normal ST-T: Normal QT: Normal Comparison: Change From Previous EKG Problem List Initiated/Reviewed/Updated: Yes Orders Last 24hrs: Active Orders 24 hr Category Date Time Status Patient Status [ADT] Routine ADT 09/09/17 01:17 Active Ang Chest [CT] Stat Exams 09/08/17 21:51 Taken Chest 2V [CR] Stat Exams 09/08/17 20:32 Taken BASIC METABOLIC PANEL,BMP [CHEM] Routine Lab 09/09/17 05:40 Received HYDROmorphone [Dilaudid] Med 09/09/17 03:27 Active 0.5 mg IVPUSH Q2H PRN Sodium Chloride 0.9% [Normal Saline] 1,000 ml Med 09/09/17 03:30 Active IV ASDIRECTED Sodium Chloride 0.9% [Saline Flush] Med 09/08/17 23:11 Active 10 ml FLUSH ONETIME PRN Code Status [Resuscitation Status] Routine Resus Stat 09/09/17 03:24 Ordered EKG 12 Lead [EK] Stat Ther 09/08/17 20:20 Ordered Medication Orders Hydromorphone HCl (Dilaudid) 0.5 mg IVPUSH Q2H PRN PRN Reason: chest pain Sodium Chloride (Normal Saline) 1,000 mls @ 100 mls/hr IV ASDIRECTED JUAN CARLOS Last Admin: 09/09/17 06:28 Dose: 100 mls/hr Sodium Chloride (Saline Flush) 10 ml FLUSH ONETIME PRN PRN Reason: IV FLUSH Last Admin: 09/08/17 23:30 Dose: 10 ml Assessment/Plan Comment:: Assessment/Plan: Acute: CP r/o ACS - Risk factors: HTN and HLD - Initial Troponin and EKG both negative - Likely MSK in etiology - Serial CE x2, Lipid Panel and Repeat EKG later today - Low dose Naproxen with H2B x 3 doses only Intractable Back Pain/Shoulder Pain - Continue home dose Tramadol - Caution narcotics with Aricept and Namenda Medications - PT/OT and conservative management - Consider medical marijuana down the road with less side effects Chronic: Impaired Vision HTN HLD 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
[2017-09-09] MEDS ORDERED: hydrALAZINE 20 MG/ML SDV IVPUSH PRN (07:09)
[2017-09-09] MEDS ORDERED: LORazepam 2 MG/ML SDV IVPUSH PRN (07:09)
[2017-09-09] MEDS ORDERED: Metoprolol Tartrate 5 MG/5 ML SDV IVPUSH PRN (07:09)
[2017-09-09] MEDS ORDERED: Polyethylene Glycol 3350 Powder 17 GM Packet PO PRN (07:10)
[2017-09-09] MEDS ORDERED: Docusate Sodium 100 MG Cap PO PRN (07:10)
[2017-09-09] MEDS ORDERED: Ondansetron 4 MG/2 ML SDV IV PRN (07:10)
[2017-09-09] MEDS ORDERED: Promethazine 12.5 MG in Sodium Chloride 0.9% 50 ML IV PRN (07:10)
[2017-09-09] MEDS ORDERED: Acetaminophen/HYDROcodone 325-5 MG Tab PO PRN (07:10)
[2017-09-09] MEDS ORDERED: Acetaminophen 325 MG Tab PO PRN (07:10)
[2017-09-09] MEDS ORDERED: Bisacodyl 5 MG Tab PO PRN (07:10)
[2017-09-09] MEDS ORDERED: Albuterol/Ipratropium 3.0-0.5 MG/3 ML Neb Soln NEB PRN (07:10)
[2017-09-09] MEDS ORDERED: LORazepam 2 MG/ML SDV IV PRN (07:10)
[2017-09-09] MEDS ORDERED: Potassium Chloride 20 MEQ Tab.ER PO ONE ×2 (09:00→13:00)
[2017-09-09] MEDS: Aspirin 81 MG Tab.Chew PO SCH (12:13)
[2017-09-09] MEDS: HYDROCHLOROTHIAZIDE PO SCH (12:15)
[2017-09-09] MEDS: TRIAMTERENE PO SCH (12:15)
[2017-09-09] MEDS: Levothyroxine 125 MCG Tab PO SCH (12:18)
[2017-09-09] MEDS: ACETAMINOPHEN 650 MG PO SCH (12:22)
[2017-09-09] MEDS: SERTRALINE 100 MG PO SCH (12:25)
[2017-09-09] MEDS: Famotidine 20 MG Tab PO SCH (12:31)
[2017-09-09] MEDS ORDERED: DONEPEZIL 10 MG PO SCH (17:00)
[2017-09-09] MEDS ORDERED: traMADol 50 MG Tab**PTOM PO SCH (21:00)
[2017-09-09] MEDS ORDERED: SIMVASTATIN 20 MG PO SCH (21:00)
[2017-09-09] MEDS ORDERED: MELATONIN 5 MG PO SCH (21:00)
[2017-09-09] MEDS ORDERED: MEMANTINE 28 MG PO SCH (21:00)
[2017-09-10] MEDS: Sodium Chloride 0.9% 1,000 ML IV SCH (02:27)
--- NOTE | 2017-09-10 07:58 | PCM.DCSUM1 ---
Discharge Summary - Hospital Course Brief History: This is a 77 yo elderly white female with past medical hx/o Impaired Vision, HTN, HLD, CKD Stage, OA/DJD, Chronic Back Pain, Hypothyroidism , Anxiety, Depression and Obesity with BMI of 30+ who comes in for evaluation of sudden right sided chest pain with radiation to back that started yesterday. She carries a hx/o chronic back back s/p shoulder surgery. He pain is usually waxes and wanes in nature. Her pain sharp and made worse with movement and by taking deep breaths. She denies and recent trauma, injury or falls. Patient is on Tramadol but w/o much relief. Her initial work up in the emergency department shows a CBC remarkable for RDW of 46.4, Platelet count of 170, Neutrophils of 64% and Basophils of 2%. Her chemistry is significant for potassium of 3.0, BUN of 41, and Cr of 2.1. Her coagulation study is remarkable for D-dimer of 0.51. Her UDS is negative for UTI. Her CXR and CTA both show no acute abnormal findings. Her initial troponin level is negative. Patient is being admitted for Chest Pain r/o ACS and Intractable Pain. She is full code. - Discharge Data Discharge Date: 09/10/17 Discharge Disposition: Home, Self-Care 01 Condition: Good - Discharge Diagnosis/Problem(s) (1) Chest pain in adult SNOMED Code(s): 49910838 ICD Code: R07.9 - CHEST PAIN, UNSPECIFIED Status: Resolved (2) Back pain SNOMED Code(s): 969669690 ICD Code: M54.9 - DORSALGIA, UNSPECIFIED Status: Resolved Qualifiers: Back pain location: back pain in other location Chronicity: chronic Qualified Code(s): M54.9 - Dorsalgia, unspecified; G89.29 - Other chronic pain (3) Shoulder pain, right SNOMED Code(s): 80420267, 18144293 ICD Code: M25.511 - PAIN IN RIGHT SHOULDER Status: Resolved Qualifiers: Chronicity: chronic Qualified Code(s): M25.511 - Pain in right shoulder; G89.29 - Other chronic pain (4) Hypomagnesemia syndrome SNOMED Code(s): 813248079 ICD Code: E83.42 - HYPOMAGNESEMIA Status: Acute (5) Chronic kidney disease SNOMED Code(s): 155161004 ICD Code: N18.9 - CHRONIC KIDNEY DISEASE, UNSPECIFIED Status: Chronic Qualifiers: Chronic kidney disease stage: stage 3 (moderate) Qualified Code(s): N18.3 - Chronic kidney disease, stage 3 (moderate) - Patient Summary/Data Operative Procedure(s) Performed: None Complications: None Consults: Consultations 09/09/17 07:14 Consult to Case Management [CONS] Routine Consult to Underwater Welder [CONS] Routine Consult to Spiritual Care [CONS] Routine OT Evaluation and Treatment [CONS] Routine PT Evaluation and Treatment [CONS] Routine Labs Pending at D/C: None Recommended Follow-up Testing/Procedures: None Planned Operative Procedure(s) after DC: None Hospital Course: Patient was primarily admitted for medical management of intractable anterior chest, back and shoulder pain and ultimately ruled out for ACS. She carried a hx /o OA/DJD with surgical changes on right shoulder. She had no recent trauma or injury. Her chest x-ray was benign. All her basic cardiac work to include serial CE x 3, EKG x 2, Lipid Panel and Telemetry readings all revealed no abnormal findings. Patient received initial treatment in ED before she was sent to the floor for further treatment. On the floor, she continued to receive pain medication, PT/ OT and other forms of conservative management. She improved significantly on this regimen. Her hospital course was uncomplicated and the rest of her chronic medical illness remained stable during this admission. Patient was stable upon discharge. She as advised to resume all her routine home medications and continue home activities as tolerated. She was further advised to call or follow up with her PCP for any questions of concerns after discharge. And most importantly, she was advised to come back or seek immediate care should her symptoms persist or get worse. The patient and her daughter at bedside expressed understanding and in agreement with plans as discussed above. All questions were answered. Her PCP was called and updated about her clinical progress and discharge care plan. - Patient Instructions Diet: Usual Diet as Tolerated Activity: As Tolerated Driving: Do Not Drive Showering/Bathing: May Shower Notify Provider of: Fever, Increased Pain, Swelling and Redness, Nausea and/or Vomiting Other/Special Instructions: - Resume all home medications. - Please continue routine home activities as tolerated. - Call your family doctor for any questions or concerns after discharge. - Follow up with PCP in 1-2 week if needed. - Come back or seek immediate care should your symptom persists or gets worse - Discharge Plan Home Medications: Home Meds Acetaminophen [Tylenol Arthritis Pain] 1,300 mg PO DAILY 10/02/13 [History] Aspirin [Shira Chewable Aspirin] 81 mg PO DAILY 10/02/13 [History] Donepezil [Aricept] 10 mg PO DAILY 10/02/13 [History] Simvastatin [Zocor] 20 mg PO BEDTIME 10/02/13 [History] Triamterene/Hydrochlorothiazid [Triamterene-HCTZ 37.5-25 MG] 1 tab PO DAILY 05/17 [History] Vitamin B Complex 1,000 mcg PO DAILY 10/02/13 [History] Melatonin [Melatin] 5 mg PO BEDTIME 03/24/17 [History] Memantine HCl [Namenda Xr] 28 mg PO BEDTIME 03/24/17 [History] traMADol [Ultram] 50 mg PO BEDTIME 03/24/17 [History] amLODIPine Besylate [Amlodipine Besylate] 5 mg PO DAILY 09/08/17 [History] Levothyroxine 125 mcg PO ACBREAKFAST 09/09/17 [History] Sertraline HCl 100 mg PO BEDTIME 09/09/17 [History] Patient Handouts: Shoulder Range of Motion Exercises, Shoulder Pain, Easy-to- Read, Chest Wall Pain, [id number], What You Need to Know About Chronic Back Pain, Musculoskeletal Pain - Discharge Summary/Plan Comment DC Time >30 min.: Yes (45 mins) Discharge Summary/Plan Comment: Discharge to Home - General Info Date of Service: 09/10/17 Admission Dx/Problem (Free Text: Admission Diagnosis/Problem Admission Diagnosis/Problem Chest pain Subjective Update: Follow Up Functional Status: Reports: Pain Controlled, Tolerating Diet, Ambulating, Urinating. Denies: New Symptoms - Review of Systems General: Reports: No Symptoms. Denies: Fever, Weakness, Fatigue, Malaise, Chills HEENT: Reports: No Symptoms Pulmonary: Denies: Shortness of Breath, Cough Cardiovascular: Denies: Chest Pain, Palpitations, Dyspnea on Exertion, Lightheadedness Gastrointestinal: Denies: Abdominal Pain, Nausea, Vomiting Genitourinary: Reports: No Symptoms Musculoskeletal: Reports: Shoulder Pain, Back Pain Skin: Denies: Cyanosis, Mottled, Pallor, Diaphoresis, Bruising Neurological: Reports: Confusion (baseline dementia). Denies: Difficulty Walking, Weakness, Gait Disturbance Psychiatric: Denies: Depression, Anxiety, Agitation, Hallucinations Systems Review Comment: No overnight or acute issues. She slept pretty good. She reports no chest pain. Her shoulder pain is very minimal with a pain scale of 1. Her Mg level is slightly low at 1.7. - Patient Data Vitals - Most Recent: Last Vital Signs Temp 37.2 C 09/10/17 04:40 Pulse 63 09/10/17 04:40 Resp 14 09/10/17 04:40 BP 140/64 09/10/17 04:40 Pulse Ox 95 09/10/17 04:40 Weight - Most Recent: 82.645 kg I&O - Last 24 hours: Intake & Output 09/09/17 09/10/17 09/10/17 22:59 06:59 14:59 Intake Total 1285 2405 Balance 1285 2405 Lab Results - Last 24 hrs: Laboratory Results - last 24 hr 09/09/17 09/09/17 09/09/17 Range/Units 05:40 05:40 13:15 WBC (3.98-10.04) K/mm3 RBC (3.98-5.22) M/mm3 Hgb (11.2-15.7) gm/L Hct (34.1-44.9) % MCV (79.4-94.8) fl MCH (25.6-32.2) pg MCHC (32.2-35.5) g/dl RDW Std Deviation (36.4-46.3) fL Plt Count (182-369) K/mm3 MPV (9.4-12.3) fl Neut % (Auto) (34.0-71.1) % Lymph % (Auto) (19.3-51.7) % [place] % (Auto) (4.7-12.5) % Eos % (Auto) (0.7-5.8) Baso % (Auto) (0.1-1.2) % Neut # (Auto) (1.56-6.13) K/mm3 Lymph # (Auto) (1.18-3.74) K/mm3 [place] # (Auto) (0.24-0.36) K/mm3 Eos # (Auto) (0.04-0.36) K/mm3 Baso # (Auto) (0.01-0.08) K/mm3 Sodium 141 (136-145) mEq/L Potassium 3.4 L (3.5-5.1) mEq/L Chloride 105 (98-107) mEq/L Carbon Dioxide 22 (21-32) mEq/L Anion Gap 17.4 H (5-15) BUN 33 H (7-18) mg/dL Creatinine 1.4 H (0.55-1.02) mg/dL Est Cr Clr Drug Dosing 26.19 mL/min Estimated GFR (MDRD) 36 (>60) mL/min BUN/Creatinine Ratio 23.6 H (14-18) Glucose 102 (83-115) mg/dL Calcium 8.6 (8.5-10.1) mg/dL Magnesium (1.8-2.4) mg/dl CK-MB (CK-2) < 0.5 0.5 (0-3.6) ng/ml Troponin I < 0.017 (0.00-0.056) ng/mL Triglycerides 72 (<150) mg/dL Cholesterol 153 (<200) mg/dL LDL Cholesterol Direct 87 (<100) mg/dL HDL Cholesterol 55.0 (40-59) mg/dL 09/09/17 09/10/17 09/10/17 Range/Units 13:15 06:00 06:00 WBC 6.03 (3.98-10.04) K/mm3 RBC 4.03 (3.98-5.22) M/mm3 Hgb 12.1 (11.2-15.7) gm/L Hct 37.0 (34.1-44.9) % MCV 91.8 (79.4-94.8) fl MCH 30.0 (25.6-32.2) pg MCHC 32.7 (32.2-35.5) g/dl RDW Std Deviation 46.8 H (36.4-46.3) fL Plt Count 152 L (182-369) K/mm3 MPV 9.5 (9.4-12.3) fl Neut % (Auto) 56.0 (34.0-71.1) % Lymph % (Auto) 28.5 (19.3-51.7) % [place] % (Auto) 10.4 (4.7-12.5) % Eos % (Auto) 4.3 (0.7-5.8) Baso % (Auto) 0.5 (0.1-1.2) % Neut # (Auto) 3.37 (1.56-6.13) K/mm3 Lymph # (Auto) 1.72 (1.18-3.74) K/mm3 [place] # (Auto) 0.63 H (0.24-0.36) K/mm3 Eos # (Auto) 0.26 (0.04-0.36) K/mm3 Baso # (Auto) 0.03 (0.01-0.08) K/mm3 Sodium (136-145) mEq/L Potassium (3.5-5.1) mEq/L Chloride (98-107) mEq/L Carbon Dioxide (21-32) mEq/L Anion Gap (5-15) BUN (7-18) mg/dL Creatinine (0.55-1.02) mg/dL Est Cr Clr Drug Dosing mL/min Estimated GFR (MDRD) (>60) mL/min BUN/Creatinine Ratio (14-18) Glucose (83-115) mg/dL Calcium (8.5-10.1) mg/dL Magnesium 1.7 L (1.8-2.4) mg/dl CK-MB (CK-2) (0-3.6) ng/ml Troponin I < 0.017 (0.00-0.056) ng/mL Triglycerides (<150) mg/dL Cholesterol (<200) mg/dL LDL Cholesterol Direct (<100) mg/dL HDL Cholesterol (40-59) mg/dL Med Orders - Current: Current Medications Acetaminophen (Tylenol) 0 mg PO DAILY [facility] CARLOS Last Admin: 09/09/17 12:22 Dose: 1,300 mg Acetaminophen (Tylenol) 650 mg PO Q4H PRN PRN Reason: Pain (Mild 1-3)/fever Hydrocodone Bitart/Acetaminophen ([place] 325-5 Mg) 1 tab PO Q4H PRN PRN Reason: Pain (moderate 4-6) Albuterol/Ipratropium (Duoneb 3.0-0.5 Mg/3 Ml) 3 ml NEB Q4H PRN PRN Reason: Shortness Of Breath/wheezing Amlodipine Besylate (Norvasc) 5 mg PO DAILY [facility] Last Admin: 09/09/17 12:20 Dose: 5 mg Aspirin (Aspirin) 81 mg PO DAILY [facility] Last Admin: 09/09/17 12:13 Dose: 81 mg Bisacodyl (Dulcolax) 5 mg PO DAILY PRN PRN Reason: Constipation Docusate Sodium (Colace) 100 mg PO BID PRN PRN Reason: Constipation Donepezil HCl (Aricept) 10 mg PO WITHDINNER [facility] Last Admin: 09/09/17 16:29 Dose: 10 mg Famotidine (Pepcid) 20 mg PO DAILY [facility] Last Admin: 09/09/17 12:31 Dose: 20 mg Hydralazine HCl (Apresoline) 20 mg IVPUSH Q4H PRN PRN Reason: Hypertension Hydromorphone HCl (Dilaudid) 0.5 mg IVPUSH Q2H PRN PRN Reason: chest pain Hydromorphone HCl (Dilaudid) 0.25 mg IVPUSH Q2H PRN PRN Reason: Pain (severe 7-10) Sodium Chloride (Normal Saline) 1,000 mls @ 100 mls/hr IV ASDIRECTED [facility] Last Admin: 09/10/17 02:27 Dose: 100 mls/hr Promethazine HCl 12.5 mg/ (Sodium Chloride) 50.5 mls @ 100 mls/hr IV Q6H PRN PRN Reason: Nausea/Vomiting Magnesium Sulfate/Dextrose 1 (gm/ Premix) 100 mls @ 100 mls/hr IV ONETIME ONE Stop: 09/10/17 08:48 Levothyroxine Sodium (Levothyroxine) 125 mcg PO DAILY [facility] Last Admin: 09/09/17 12:18 Dose: 125 mcg Lorazepam (Ativan) 2 mg IVPUSH Q4H PRN PRN Reason: Seizures Lorazepam (Ativan) 0.25 mg IV Q6H PRN PRN Reason: Anxiety Magnesium Sulfate (Pharmacy To Dose - Magnesium Replacement) 1 dose .XX ASDIRECTED [facility] Memantine (Namenda) 0 mg PO BEDTIME [facility] Last Admin: 09/09/17 21:37 Dose: 28 mg Metoprolol Tartrate (Lopressor) 5 mg IVPUSH Q4H PRN PRN Reason: Tachycardia Naproxen (Naprosyn) 375 mg PO Q12HR [facility] Stop: 09/10/17 21:01 Non-Formulary Medication (Levothyroxine [Levothyroxine]) 125 mcg PO ACBREAKFAST [facility] CARLOS Non-Formulary Medication (Sertraline Hcl) 100 mg PO BEDTIME [facility] Ondansetron HCl (Zofran) 4 mg IV Q6H PRN PRN Reason: Nausea/Vomiting Melatonin 5 Mg (Ptom) 0 each PO BEDTIME [facility] Last Admin: 09/09/17 21:37 Dose: 5 each Vitamin B Complex 1 (Cap) 0 each PO DAILY [facility] Last Admin: 09/09/17 12:22 Dose: 1 each Polyethylene Glycol (Miralax) 17 gm PO DAILY PRN PRN Reason: Constipation Potassium Chloride (Pharmacy To Dose - Potassium Replacement) 1 dose .XX ASDIRECTED [facility] Senna/Docusate Sodium (Senna Plus) 1 tab PO BID PRN PRN Reason: Constipation Sertraline HCl (Zoloft) 0 mg PO DAILY [facility] Last Admin: 09/09/17 12:25 Dose: 100 mg Simvastatin (Zocor) 20 mg PO BEDTIME [facility] Last Admin: 09/09/17 21:39 Dose: 20 mg Sodium Chloride (Saline Flush) 10 ml FLUSH ONETIME PRN PRN Reason: IV FLUSH Last Admin: 09/08/17 23:30 Dose: 10 ml Tramadol HCl (Ultram) 50 mg PO BEDTIME [facility] Last Admin: 09/09/17 21:38 Dose: 50 mg Triamterene/HCTZ (Dyazide 25-37.5 Mg) 1 each PO DAILY [facility] CARL[facility] Last Admin: 09/09/17 12:15 Dose: 1 each Discontinued Medications Sodium Chloride (Normal Saline) 1,000 mls @ 150 mls/hr IV ASDIRECTED [facility] CARLOS Last Admin: 09/08/17 22:18 Dose: 150 mls/hr Sodium Chloride (Normal Saline) 100 mls @ 65 mls/hr IV ASDIRECTED [facility] Last Admin: 09/08/17 23:30 Dose: 65 mls/hr Iopamidol (Isovue-370 (76%)) 100 ml IVPUSH ONETIME ONE Stop: 09/08/17 23:12 Last Admin: 09/08/17 23:30 Dose: 100 ml Naproxen (Naprosyn) 375 mg PO Q12HR [facility] CARLOS Orphenadrine Citrate (Norflex) 100 mg PO ONETIME STA Stop: 09/08/17 23:41 Last Admin: 09/08/17 23:51 Dose: 100 mg Orphenadrine Citrate (Norflex) Confirm Administered Dose 100 mg .ROUTE .STK-MED ONE Stop: 09/08/17 23:53 Last Admin: 09/09/17 01:32 Dose: Not Given Potassium Chloride (Klor-Con M20) 40 meq PO ONETIME ONE Stop: 09/08/17 21:53 Last Admin: 09/08/17 22:09 Dose: 40 meq Potassium Chloride (Klor-Con M20) 40 meq PO ONETIME ONE Stop: 09/09/17 09:01 Last Admin: 09/09/17 12:32 Dose: Not Given Potassium Chloride (Klor-Con M20) 40 meq PO ONETIME ONE Stop: 09/09/17 13:01 Last Admin: 09/09/17 12:31 Dose: 40 meq - Exam General: Reports: Alert, Cooperative, No Acute Distress, Other (Obese) HEENT: Reports: Pupils Equal, Pupils Reactive, EOMI, Mucous Membr. Moist/[place] Neck: Reports: Supple, Trachea Midline, No JVD, No Thyromegaly Lungs: Reports: Clear to Auscultation, Normal Respiratory Effort Cardiovascular: Reports: Regular Rate, Regular Rhythm GI/Abdominal Exam: Normal Bowel Sounds, Soft, Non-Tender, No Organomegaly, No Distention, No Abnormal Bruit, No Mass (Female) Exam: Deferred Rectal (Female) Exam: Deferred Back Exam: Reports: Normal Inspection, Decreased Range of Motion Extremities: Normal Inspection, Normal Range of Motion, Non-Tender, No Pedal Edema, Normal Capillary Refill Skin: Reports: Warm, Dry, Intact Neurological: Reports: No New Focal Deficit Psy/Mental Status: Reports: Alert, Normal Affect, Normal Mood
[2017-09-10] MEDS: Aspirin 81 MG Tab.Chew PO SCH (08:19)
[2017-09-10] MEDS: HYDROCHLOROTHIAZIDE PO SCH (08:20)
[2017-09-10] MEDS: TRIAMTERENE PO SCH (08:20)
[2017-09-10] MEDS: Levothyroxine 125 MCG Tab PO SCH (08:20)
[2017-09-10] MEDS: Famotidine 20 MG Tab PO SCH (08:21)
[2017-09-10] MEDS: ACETAMINOPHEN 650 MG PO SCH (08:22)
[2017-09-10 08:23] VITALS: BP 133/84
[2017-09-10] MEDS: SERTRALINE 100 MG PO SCH (08:23)
[2017-09-10] MEDS ORDERED: Magnesium Oxide 400 MG Tab PO ONE (09:00)
[2017-09-10] MEDS ORDERED: SERTRALINE HCL 100 MG PO SCH (21:00)
[2017-09-11] MEDS ORDERED: Non-Formulary Medication 1 Each (Levothyroxine [Levothyroxine] 125 MCG) PO SCH (06:00)
--- NOTE | 2017-09-11 08:08 | CT ---
CT chest Technique: Multiple axial sections through the chest were obtained. Comparison: No prior chest CT exam. Findings: Pulmonary arteries are well-opacified. No filling defects are seen to indicate pulmonary embolism. Coronary artery calcification is seen. No pericardial thickening is seen. Small portion of the visualized upper abdominal structures show a upper pole cyst within the right kidney measuring 4.4 cm. Moderate hiatal hernia is noted. Mediastinum and hilar region show no adenopathy or mass. No axillary adenopathy is seen. Lungs show no acute parenchymal densities. Incidental azygos lobe is noted. Small subpleural nodule is noted within the right upper lung measuring about 2 mm in size which is felt to be incidental. Bone window settings were reviewed which show scattered degenerative change within the spine. Impression: 1. No findings of pulmonary embolism. 2. Other incidental findings as noted above. Diagnostic code #2 I agree with preliminary report from [facility], finalized at 09/09/17, 12:58 AM Central Time
--- NOTE | 2017-09-11 08:44 | CR ---
Chest: Two views of the chest were obtained. Comparison: No prior chest x-ray, subsequent CT chest of 09/08/17. Findings: Incidental azygos lobe is seen. No acute parenchymal densities are seen. Heart size is within normal limits. Tortuous thoracic aorta is seen. Diaphragms are slightly flattened on the lateral view compatible with emphysematous change. Minimal scoliosis is noted within the spine. Impression: 1. Findings as noted above. Nothing acute is seen. Diagnostic code #2
== END 2017-09-10 11:25 | disposition home or self-care (01) ==
LOC: JD.ED 19:58 → JD.MS 09-09 01:17
PROVIDERS: ADMIT Internal Medicine; ATTEND Internal Medicine
DX: R07.9 Chest pain, unspecified (principal); I12.9 Hypertensive chronic kidney disease with stage 1 through stage 4 chronic kidney disease, or unspecified chronic kidney disease; N18.3 Chronic kidney disease, stage 3 (moderate); E66.9 Obesity, unspecified; E78.5 Hyperlipidemia, unspecified; E03.9 Hypothyroidism, unspecified; E83.42 Hypomagnesemia; M54.9 Dorsalgia, unspecified; M25.511 Pain in right shoulder; F32.9 Major depressive disorder, single episode, unspecified; F41.9 Anxiety disorder, unspecified; Z79.82 Long term (current) use of aspirin; Z79.899 Other long term (current) drug therapy; Z88.8 Allergy status to other drugs, medicaments and biological substances
CPT/HCPCS: 36415; 71046; 71275; 80048; 80053; 80061; 81001; 82553; 83735; 84484; 85007; 85025; 85027; 85379; 85610; 85730; 93005; 96360; 96361; 97162; 99285; A9270; J3475; J7030; J7040; J7050; Q9967; 93010; 96365; G0378

== ENCOUNTER 2020-04-04 17:06 | Inpatient (IN) | payer MEDICARE, BC ==
--- NOTE | 2020-04-04 17:37 | EDM.PDOC ---
<Varinder Cabrera - Last Filed: 04/04/20 18:43> ED HPI GENERAL MEDICAL PROBLEM - General Chief Complaint: General Stated Complaint: DIZZY/LETHARGIC Time Seen by Provider: 04/04/20 17:36 - History of Present Illness INITIAL COMMENTS - FREE TEXT/NARRATIVE: 80-year-old female brought in by her daughter with increased dizzy spells. She gets lethargic with these dizzy spells. This is been getting worse over the last 5 or 6 weeks and it is unpredictable. It can come on when she is up and walking it can come on when she is doing nothing in anywhere in between. She becomes less responsive and complains that she is dizzy. Patient does have advanced Alzheimer's. She is not affected with any fevers chills. Her appetite is perhaps diminished. She has no history of coronary artery disease but she has a strong family history of this. This dizziness is not associated with nausea or vomiting. Patient does have cytopenia and is being followed by hematology group. It has been speculated that she has myelodysplastic syndrome family has avoided bone marrow biopsy because of the discomfort. - Related Data Allergies Allergy/AdvReac Type Severity Reaction Status Date / Time alendronate sodium Allergy Hives Verified 09/09/17 08:31 [From Fosamax] Home Meds: Home Meds Acetaminophen [Tylenol Arthritis Pain] 1,300 mg PO DAILY 10/02/13 [History] Aspirin [Shira Chewable Aspirin] 81 mg PO DAILY 10/02/13 [History] Donepezil [Aricept] 10 mg PO DAILY 10/02/13 [History] Simvastatin [Zocor] 20 mg PO BEDTIME 10/02/13 [History] Triamterene/Hydrochlorothiazid [Triamterene-HCTZ 37.5-25 MG] 1 tab PO DAILY 10/02/13 [History] Vitamin B Complex 1,000 mcg PO DAILY 10/02/13 [History] Melatonin [Melatin] 5 mg PO BEDTIME 03/24/17 [History] Memantine HCl [Namenda Xr] 28 mg PO BEDTIME 03/24/17 [History] traMADol [Ultram] 50 mg PO BEDTIME 03/24/17 [History] amLODIPine Besylate [Amlodipine Besylate] 5 mg PO DAILY 09/08/17 [History] Levothyroxine 125 mcg PO ACBREAKFAST 09/09/17 [History] Sertraline HCl 100 mg PO BEDTIME 09/09/17 [History] Past Medical History HEENT History: Reports: Impaired Vision Other HEENT History: pt wears glasses Cardiovascular History: Reports: High Cholesterol, Hypertension Respiratory History: Reports: Bronchitis, Recurrent Genitourinary History: Reports: Chronic Renal Insuffiency Other Genitourinary History: foes to [place] for nephology Musculoskeletal History: Reports: Arthritis, Back Pain, Chronic (DDD) Other Musculoskeletal History: Dr. Coon give her injections to the right side-sacral illiac Psychiatric History: Reports: Anxiety, Depression Endocrine/Metabolic History: Reports: Hypothyroidism, Obesity/BMI 30+ Oncologic (Cancer) History: Reports: Breast (left) - Past Surgical History HEENT Surgical History: Reports: Cataract Surgery, Tonsillectomy Female Surgical History: Reports: D&C (x 1) Musculoskeletal Surgical History: Reports: Shoulder Surgery (right rotator cuff repair, open) Oncologic Surgical History: Reports: Mastectomy (left, November 2015) Social & Family History - Family History Family Medical History: No Pertinent Family History - Caffeine Use Caffeine Use: Reports: Coffee, Tea Other Caffeine Use: couple of cups of coffee everyday, sometimes a tea - Living Situation & Occupation Living situation: Reports: , Alone Occupation: Retired ED ROS GENERAL - Review of Systems Review Of Systems: See Below Constitutional: Reports: Decreased Appetite. Denies: Fever, Chills HEENT: Reports: No Symptoms Respiratory: Reports: No Symptoms Cardiovascular: Reports: No Symptoms Endocrine: Reports: No Symptoms, Polyuria GI/Abdominal: Reports: Anorexia. Denies: Abdominal Pain, Constipation, Diarrhea, Nausea, Vomiting : Reports: No Symptoms Musculoskeletal: Reports: No Symptoms Skin: Reports: No Symptoms Neurological: Reports: No Symptoms Psychiatric: Reports: No Symptoms Hematologic/Lymphatic: Reports: No Symptoms Immunologic: Reports: No Symptoms ED EXAM, GENERAL - Physical Exam Exam: See Below Exam Limited By: Other (She answers simple questions appropriately) General Appearance: Alert, No Apparent Distress Eye Exam: Bilateral Eye: Normal Inspection, PERRL Ears: Normal External Exam, Normal Canal, Hearing Grossly Normal, Normal TMs Nose: Normal Inspection, Normal Mucosa, No Blood Throat/Mouth: Normal Inspection, Normal Lips, Normal Teeth, Normal Gums, Normal Oropharynx, Normal Voice, No Airway Compromise Head: Atraumatic, Normocephalic Neck: Normal Inspection, Supple, Non-Tender, Full Range of Motion. No: Lymphadenopathy (L), Lymphadenopathy (R) Respiratory/Chest: No Respiratory Distress, Lungs Clear, Normal Breath Sounds Cardiovascular: Regular Rate, Rhythm, No Edema, No Murmur GI/Abdominal: Normal Bowel Sounds, Soft, Non-Tender Back Exam: Normal Inspection. No: CVA Tenderness (L), CVA Tenderness (R) Extremities: Normal Inspection, No Pedal Edema Neurological: Alert Course - Re-Assessments/Exams Free Text/Narrative Re-Assessment/Exam: 04/04/20 18:59 Hemoglobin is quite low at 5.7 her hematocrit is 17 BUN 50 creatinine 2.0 anion gap 18.1. Her CBC is strongly consistent with myelodysplastic syndrome. We will decrease her fluid bolus to a 500 cc LR bolus followed by 125 an hour we will transfuse 1 unit of packed red cells. At this point his change of shift further care and disposition per Dr. Lama. Consideration should be given to decreasing her Namenda to 14 milligrams a day rather than 28 as this is been associated with dizziness as well. Departure - Departure Disposition: Refer to Observation Clinical Impression: Severe neutropenia, Severe anemia, Thrombocytopenia, Orthostasis, Chronic renal insufficiency - Discharge Information Referrals: Flower Johnson, OFFICE RECEPTIONIST [Primary Care Provider] - Forms: ED Department Discharge Sepsis Event Note (ED) - Evaluation Sepsis Screening Result: No Definite Risk <Reno Lama - Last Filed: 04/04/20 21:19> Course - Vital Signs Last Recorded V/S: Last Vital Signs Temp 36.4 C 04/04/20 17:25 Pulse 85 04/04/20 17:25 Resp 18 04/04/20 17:25 BP 143/67 H 04/04/20 17:25 Pulse Ox 96 04/04/20 17:25 Orthostatic Blood Pressure [ 115/97 Standing] Orthostatic Blood Pressure [ 138/92 Sitting] Orthostatic Blood Pressure [ 149/67 Supine] - Orders/Labs/Meds Orders: Active Orders 24 hr Category Date Time Status EKG 12 Lead [EKG Documentation Completion] [RC] STAT Care 04/04/20 17:51 Active Orthostatic Vital Signs [RC] ASDIRECTED Care 04/04/20 17:55 Active Chest 1V Frontal [CR] Stat Exams 04/04/20 17:54 Taken CORONAVIRUS COVID-19 BALA [MOLEC] Stat Lab 04/04/20 20:52 Received CULTURE BLOOD [BC] Stat Lab 04/04/20 20:37 Ordered CULTURE BLOOD [BC] Stat Lab 04/04/20 20:37 Ordered CULTURE URINE [RM] Stat Lab 04/04/20 20:38 Ordered FRESH FROZEN PLASMA [BBK] Stat Lab 04/04/20 20:19 Results PATIENT RETYPE [BBK] Routine Lab 04/04/20 20:19 Results RED BLOOD CELLS LP [BBK] Stat Lab 04/04/20 20:19 Results UA RFX MARGARET AND CULT IF INDIC [URIN] Stat Lab 04/04/20 18:10 Received Levofloxacin/Dextrose 5%-Water [Levaquin in D5W 750 MG/ Med 04/04/20 20:16 Active 150 ML] 750 mg Premix Bag 1 bag IV ONETIME Sodium Chloride 0.9% [Normal Saline] 1,000 ml Med 04/04/20 20:15 Active IV ASDIRECTED Blood Culture x2 Reflex Set [OM.PC] Stat Oth 04/04/20 20:37 Ordered Transfuse PRBC [Transfuse Red Blood Cells] [COMM] Stat Oth 04/04/20 18:45 Ordered Transfuse PRBC [Transfuse Red Blood Cells] [COMM] Stat Oth 04/04/20 20:03 Ordered Transfuse PRBC [Transfuse Red Blood Cells] [COMM] Stat Oth 04/04/20 20:33 Ordered Transfuse Red Blood Cells [COMM] Stat Oth 04/04/20 20:33 Ordered Medication Orders Sodium Chloride (Normal Saline) 1,000 mls @ 125 mls/hr IV ASDIRECTED JUAN CARLOS Levofloxacin/Dextrose 750 mg/ (Premix) 150 mls @ 100 mls/hr IV ONETIME ONE Stop: 04/04/20 21:45 Labs: Laboratory Tests 04/04/20 04/04/20 04/04/20 Range/Units 17:10 18:10 18:10 WBC 1.32 L* (3.98-10.04) K/mm3 RBC 1.79 L (3.98-5.22) M/mm3 Hgb 5.7 L* D (11.2-15.7) gm/dl Hct 17.7 L (34.1-44.9) % MCV 98.9 H (79.4-94.8) fl MCH 31.8 (25.6-32.2) pg MCHC 32.2 (32.2-35.5) g/dl RDW Std Deviation 45.4 (36.4-46.3) fL Plt Count 23 L* D (182-369) K/mm3 Neutrophils % (Manual) 8 L (40-60) % Band Neutrophils % 0 (0-10) % Lymphocytes % (Manual) 89 H (20-40) % Atypical Lymphs % 2 % Monocytes % (Manual) 1 L (2-10) % Eosinophils % (Manual) 0 L (0.7-5.8) % Basophils % (Manual) 0 L (0.1-1.2) Platelet Estimate Marked dec Plt Morphology Comment See note Polychromasia Few Poikilocytosis 1+ slight Anisocytosis 1+ slight Macrocytosis 1+ slight Tear Drop Cells Few Ovalocytes 1+ slight RBC Morph Comment Not Reportable Sodium 140 (136-145) mEq/L Potassium 4.1 (3.5-5.1) mEq/L Chloride 103 (98-107) mEq/L Carbon Dioxide 23 (21-32) mEq/L Anion Gap 18.1 H (5-15) BUN 50 H (7-18) mg/dL Creatinine 2.0 H (0.55-1.02) mg/dL Est Cr Clr Drug Dosing 17.45 mL/min Estimated GFR (MDRD) 24 (>60) mL/min BUN/Creatinine Ratio 25.0 H (14-18) Glucose 95 (83-115) mg/dL Calcium 9.7 (8.5-10.1) mg/dL Magnesium 1.7 L (1.8-2.4) mg/dl Total Bilirubin 0.6 (0.2-1.0) mg/dL AST 15 (15-37) U/L ALT 18 (14-59) U/L Alkaline Phosphatase 68 (46-116) U/L Total Protein 7.0 (6.4-8.2) g/dl Albumin 3.2 L (3.4-5.0) g/dl Globulin 3.8 gm/dL Albumin/Globulin Ratio 0.8 L (1-2) Blood Type B NEGATIVE Gel Antibody Screen Negative Crossmatch 04/04/20 Range/Units 20:19 WBC (3.98-10.04) K/mm3 RBC (3.98-5.22) M/mm3 Hgb (11.2-15.7) gm/dl Hct (34.1-44.9) % MCV (79.4-94.8) fl MCH (25.6-32.2) pg MCHC (32.2-35.5) g/dl RDW Std Deviation (36.4-46.3) fL Plt Count (182-369) K/mm3 Neutrophils % (Manual) (40-60) % Band Neutrophils % (0-10) % Lymphocytes % (Manual) (20-40) % Atypical Lymphs % % Monocytes % (Manual) (2-10) % Eosinophils % (Manual) (0.7-5.8) % Basophils % (Manual) (0.1-1.2) Platelet Estimate Plt Morphology Comment Polychromasia Poikilocytosis Anisocytosis Macrocytosis Tear Drop Cells Ovalocytes RBC Morph Comment Sodium (136-145) mEq/L Potassium (3.5-5.1) mEq/L Chloride (98-107) mEq/L Carbon Dioxide (21-32) mEq/L Anion Gap (5-15) BUN (7-18) mg/dL Creatinine (0.55-1.02) mg/dL Est Cr Clr Drug Dosing mL/min Estimated GFR (MDRD) (>60) mL/min BUN/Creatinine Ratio (14-18) Glucose (83-115) mg/dL Calcium (8.5-10.1) mg/dL Magnesium (1.8-2.4) mg/dl Total Bilirubin (0.2-1.0) mg/dL AST (15-37) U/L ALT (14-59) U/L Alkaline Phosphatase (46-116) U/L Total Protein (6.4-8.2) g/dl Albumin (3.4-5.0) g/dl Globulin gm/dL Albumin/Globulin Ratio (1-2) Blood Type Gel Antibody Screen Crossmatch See Detail Meds: Medications Generic Name Dose Route Start Last Admin Trade Name Freq PRN Reason Stop Dose Admin Sodium Chloride 1,000 mls @ 125 mls/hr 04/04/20 20:15 Normal Saline IV ASDIRECTED JUAN CARLOS Levofloxacin/Dextrose 750 mg/ 150 mls @ 100 mls/hr 04/04/20 20:16 Premix IV 04/04/20 21:45 ONETIME ONE Discontinued Medications Generic Name Dose Route Start Last Admin Trade Name Joelle PRN Reason Stop Dose Admin Lactated Ringer's 1,000 mls @ 999 mls/hr 04/04/20 18:23 Ringers, Lactated IV 04/04/20 19:23 .BOLUS ONE Lactated Ringer's 500 mls @ 999 mls/hr 04/04/20 18:52 04/04/20 19:55 Ringers, Lactated IV 04/04/20 19:22 999 mls/hr .BOLUS ONE Administration Lactated Ringer's 1,000 mls @ 125 mls/hr 04/04/20 19:00 Ringers, Lactated IV ASDIRECTED [facility] - Re-Assessments/Exams Free Text/Narrative Re-Assessment/Exam: 04/04/20 20:[address] Cabrera. In short, the patient has been having dizzy spells for the past 5 to 6 weeks, which induce lethargy. She has advanced Alzheimer's and known pancytopenia of undetermined etiology. She also has a history of chronic kidney disease and left breast cancer, status post a left mastectomy in 2016. Her initial BP was found to be slightly elevated at 143/67, but she was also found to be orthostatic. Her CBC is remarkable for pancytopenia, with leukopenia of 1.32 and an ANC of 105.6. She is severely anemic with a H/H of 5.7/17.7, and thrombocytopenic with platelets of 23,000. Her BUN/Cr are elevated at 50/2.0. I have changed Dr. Cabrera's order of 1 unit of PRBCs to 2 units of PRBCs, along with 2 units of FFP. Because of the p atient's severe neutropenia, I have ordered 2 blood cultures, along with a urine culture. The patient will be given empiric Levaquin 750 mg, which will have to be renal dosed, going forward. The transfusions alone will take several hours, therefore the patient will need to be placed into observation. 04/04/20 20:[address] Viramontes, Hospitalist, at 20:43. He gladly accepted the p atient for placement in observation. I will write bridge orders. Departure - Departure Time of Disposition: 20:45 Condition: Fair - Discharge Information *PRESCRIPTION DRUG MONITORING PROGRAM REVIEWED*: Not Applicable *COPY OF PRESCRIPTION DRUG MONITORING REPORT IN PATIENT FÉLIX: Not Applicable Sepsis Event Note (ED) - Focused Exam Vital Signs: Vital Signs Temp Pulse Resp BP Pulse Ox 04/04/20 17:25 36.4 C 85 18 143/67 H 96 - My Orders Last 24 Hours: My Active Orders 04/04/20 20:16 Levofloxacin/Dextrose 5%-Water [Levaquin in D5W 750 MG/150 ML] 750 mg Premix Bag 1 bag IV ONETIME 04/04/20 20:19 FRESH FROZEN PLASMA [BBK] Stat 04/04/20 20:33 Transfuse PRBC [Transfuse Red Blood Cells] [COMM] Stat Transfuse Red Blood Cells [COMM] Stat 04/04/20 20:37 CULTURE BLOOD [BC] Stat CULTURE BLOOD [BC] Stat Blood Culture x2 Reflex Set [OM.PC] Stat 04/04/20 20:38 CULTURE URINE [RM] Stat - Assessment/Plan Last 24 Hours: My Active Orders 04/04/20 20:16 Levofloxacin/Dextrose 5%-Water [Levaquin in D5W 750 MG/150 ML] 750 mg Premix Bag 1 bag IV ONETIME 04/04/20 20:19 FRESH FROZEN PLASMA [BBK] Stat 04/04/20 20:33 Transfuse PRBC [Transfuse Red Blood Cells] [COMM] Stat Transfuse Red Blood Cells [COMM] Stat 04/04/20 20:37 CULTURE BLOOD [BC] Stat CULTURE BLOOD [BC] Stat Blood Culture x2 Reflex Set [OM.PC] Stat 04/04/20 20:38 CULTURE URINE [RM] Stat
[2020-04-04] MEDS ORDERED: Lactated Ringers 1,000 ML IV ONE (18:23)
[2020-04-04] MEDS ORDERED: Lactated Ringers 500 ML IV ONE (18:52)
[2020-04-04] MEDS ORDERED: Lactated Ringers 1,000 ML IV SCH (19:00)
[2020-04-04] MEDS: Levofloxacin/Dextrose 5%-Water 750 MG in Premix Bag 1 BAG IV ONE (20:55)
[2020-04-05] MEDS: Levofloxacin/Dextrose 5%-Water 750 MG in Premix Bag 1 BAG IV ONE (00:32)
--- NOTE | 2020-04-05 07:31 | PCM.HP.2 ---
H&P History of Present Illness - General Date of Service: 04/05/20 Admit Problem/Dx: Admission Diagnosis/Problem Admission Diagnosis/Problem Anemia, advanced Alzheimer's disease, pancytopenia likely myelodysplastic syndrome Source of Information: Family History Limitations: Reports: Altered Mental Status (Advanced dementia) - History of Present Illness Initial Comments - Free Text/Narative: The patient is a chronically ill 80-year-old lady who had presented to the emergency department with a complaint of dizziness and lightheadedness from her daughter. Patient has a history of probable myelodysplastic syndrome and has refused a bone marrow biopsy. The patient's hemoglobin was at 5.7 g/dL and her white blood cell count was also at 1.32 thousand. His platelets were also critically low at 23,000. The patient also has moderate to advanced Alzheimer's disease and has not been able to participate in any meaningful way with her history and physical. The patient's daughter is in the room with her and has supplied most of the information. The patient's daughter has also reported that her mother had severe dizziness and lightheadedness and the near syncopal episo de. The patient is also being followed by nephrology for her stage IV chronic kidney disease. The patient's daughter reports that the patient lives at home and she lives with her now. The patient also follows up with hematology. The patient's daughter also reports that her mother has been in sharp decline with her health over the past year. Onset of Symptoms: Reports: Unknown/Unsure Duration of Symptoms: Reports: Week(s):, Getting Worse Location: Reports: Generalized Severity: Mild Improves with: Reports: Other (Blood products) Worsens with: Reports: None Associated Symptoms: Reports: Confusion, Malaise, Shortness of Breath, Syncope, Weakness - Related Data Allergies/Adverse Reactions: Allergies Allergy/AdvReac Type Severity Reaction Status Date / Time alendronate sodium Allergy Hives Verified 04/04/20 23:31 [From Fosamax] Home Medications: Home Meds Acetaminophen [Tylenol Arthritis Pain] 1,300 mg PO DAILY 10/02/13 [History] Aspirin [Shira Chewable Aspirin] 81 mg PO DAILY 10/02/13 [History] Donepezil [Aricept] 10 mg PO DAILY 10/02/13 [History] Simvastatin [Zocor] 20 mg PO BEDTIME 10/02/13 [History] Triamterene/Hydrochlorothiazid [Triamterene-HCTZ 37.5-25 MG] 1 tab PO DAILY 10/02/13 [History] Melatonin [Melatin] 5 mg PO BEDTIME 03/24/17 [History] Memantine HCl [Namenda Xr] 28 mg PO BEDTIME 03/24/17 [History] Levothyroxine 137 mcg PO ACBREAKFAST 09/09/17 [History] Sertraline HCl 100 mg PO BEDTIME 09/09/17 [History] Curcumin 30 mg PO DAILY 04/04/20 [History] Metoprolol Succinate [Toprol XL] 50 mg PO DAILY 04/04/20 [History] Potassium Chloride 20 meq PO DAILY 04/04/20 [History] Vitamin D3/Vitamin K2 (Mk4) [K2 Plus D3 Tablet] 1 tab PO DAILY 04/04/20 [History] calcitrioL [Calcitriol] 0.25 mcg PO DAILY 04/04/20 [History] Non-Formulary Medication [NF Drug] 1 cap PO BID 04/05/20 [History] Non-Formulary Medication [NF Drug] 2 cap PO DAILY 04/05/20 [History] Zinc Gluconate-Zinc Picolinate [Zinc] 30 mg PO DAILY 04/05/20 [History] Past Medical History HEENT History: Reports: Impaired Vision Other HEENT History: pt wears glasses Cardiovascular History: Reports: High Cholesterol, Hypertension Respiratory History: Reports: Bronchitis, Recurrent Genitourinary History: Reports: Chronic Renal Insuffiency, Urinary Incontinence Other Genitourinary History: foes to [facility] nephology [employer] History: Reports: Musculoskeletal History: Reports: Arthritis, Back Pain, Chronic Other Musculoskeletal History: Dr. Coon give her injections to the right side-sacral illiac Neurological History: Reports: Alzheimers Disease Psychiatric History: Reports: Anxiety, Depression Endocrine/Metabolic History: Reports: Hypothyroidism, Obesity/BMI 30+ Hematologic History: Reports: Other (See Below) Other Hematologic History: hx of pancytopenia Oncologic (Cancer) History: Reports: Breast - Infectious Disease History Infectious Disease History: Reports: Chicken Pox, Influenza - Past Surgical History HEENT Surgical History: Reports: Cataract Surgery, Tonsillectomy Cardiovascular Surgical History: Reports: None Respiratory Surgical History: Reports: None Female Surgical History: Reports: D&C, Mastectomy Other Female Surgeries/Procedures: left side nov 2014-cancer;did not do chemo or radiation. Endocrine Surgical History: Reports: None Musculoskeletal Surgical History: Reports: Shoulder Surgery Oncologic Surgical History: Reports: Mastectomy Social & Family History - Family History Family Medical History: No Pertinent Family History - Tobacco Use Tobacco Use Status *Q: Never Tobacco User - Caffeine Use Caffeine Use: Reports: Coffee, Tea Other Caffeine Use: couple of cups of coffee everyday, sometimes a tea - Recreational Drug Use Recreational Drug Use: No - Living Situation & Occupation Living situation: Reports: , Alone Occupation: Retired H&P Review of Systems - Review of Systems: Review Of Systems: See Below Reason Not Obtained: Dementia Exam - Exam Exam: See Below - Vital Signs Vital Signs: Last Vital Signs Temp 37.2 C 04/05/20 05:04 Pulse 92 04/05/20 05:04 Resp 18 04/05/20 05:04 BP 129/60 04/05/20 05:04 Pulse Ox 93 L 04/05/20 05:04 Orthostatic Blood Pressure [ 115/97 Standing] Orthostatic Blood Pressure [ 138/92 Sitting] Orthostatic Blood Pressure [ 149/67 Supine] Weight: 79.469 kg - Exam Quality Assessment: No: Supplemental Oxygen, DVT Prophylaxis General: Alert, Cooperative. No: Oriented (Conversant for simple questions, not alert to person place or time, not completely understanding questions) HEENT: Conjunctiva Clear, EACs Clear, EOMI, Mucosa Moist & [place], PERRLA Neck: Supple, Trachea Midline Lungs: Clear to Auscultation, Normal Respiratory Effort Cardiovascular: Regular Rate, Regular Rhythm GI/Abdominal Exam: Normal Bowel Sounds, Soft, No Distention. No: Guarding, Rigid, Rebound (Female) Exam: Deferred Rectal (Female) Exam: Deferred Back Exam: Normal Inspection (Age-appropriate), Full Range of Motion Extremities: Normal Inspection (Age-appropriate), No Pedal Edema Skin: Warm, Dry, Intact, Ecchymosis (Ecchymoses scattered on arms) Neurological: Normal Speech Neuro Extensive - Mental Status: Alert. No: Oriented x3 Psychiatric: Alert, Normal Affect - Patient Data Lab Results Last 24 hrs: Laboratory Results - last 24 hr 04/04/20 04/04/20 04/04/20 Range/Units 17:10 18:10 18:10 WBC 1.32 L* (3.98-10.04) K/mm3 RBC 1.79 L (3.98-5.22) M/mm3 Hgb 5.7 L* D (11.2-15.7) gm/dl Hct 17.7 L (34.1-44.9) % MCV 98.9 H (79.4-94.8) fl MCH 31.8 (25.6-32.2) pg MCHC 32.2 (32.2-35.5) g/dl RDW Std Deviation 45.4 (36.4-46.3) fL Plt Count 23 L* D (182-369) K/mm3 Neutrophils % (Manual) 8 L (40-60) % Band Neutrophils % 0 (0-10) % Lymphocytes % (Manual) 89 H (20-40) % Atypical Lymphs % 2 % Monocytes % (Manual) 1 L (2-10) % Eosinophils % (Manual) 0 L (0.7-5.8) % Basophils % (Manual) 0 L (0.1-1.2) Platelet Estimate Marked dec Plt Morphology Comment See note Polychromasia Few Poikilocytosis 1+ slight Anisocytosis 1+ slight Macrocytosis 1+ slight Tear Drop Cells Few Ovalocytes 1+ slight RBC Morph Comment Not Reportable Sodium 140 (136-145) mEq/L Potassium 4.1 (3.5-5.1) mEq/L Chloride 103 (98-107) mEq/L Carbon Dioxide 23 (21-32) mEq/L Anion Gap 18.1 H (5-15) BUN 50 H (7-18) mg/dL Creatinine 2.0 H (0.55-1.02) mg/dL Est Cr Clr Drug Dosing 17.45 mL/min Estimated GFR (MDRD) 24 (>60) mL/min BUN/Creatinine Ratio 25.0 H (14-18) Glucose 95 (83-115) mg/dL Calcium 9.7 (8.5-10.1) mg/dL Magnesium 1.7 L (1.8-2.4) mg/dl Total Bilirubin 0.6 (0.2-1.0) mg/dL AST 15 (15-37) U/L ALT 18 (14-59) U/L Alkaline Phosphatase 68 (46-116) U/L Total Protein 7.0 (6.4-8.2) g/dl Albumin 3.2 L (3.4-5.0) g/dl Globulin 3.8 gm/dL Albumin/Globulin Ratio 0.8 L (1-2) SARS-CoV-2 RNA (BALA) (NEGATIVE) Blood Type B NEGATIVE Gel Antibody Screen Negative Crossmatch 04/04/20 04/04/20 Range/Units 20:19 20:52 WBC (3.98-10.04) K/mm3 RBC (3.98-5.22) M/mm3 Hgb (11.2-15.7) gm/dl Hct (34.1-44.9) % MCV (79.4-94.8) fl MCH (25.6-32.2) pg MCHC (32.2-35.5) g/dl RDW Std Deviation (36.4-46.3) fL Plt Count (182-369) K/mm3 Neutrophils % (Manual) (40-60) % Band Neutrophils % (0-10) % Lymphocytes % (Manual) (20-40) % Atypical Lymphs % % Monocytes % (Manual) (2-10) % Eosinophils % (Manual) (0.7-5.8) % Basophils % (Manual) (0.1-1.2) Platelet Estimate Plt Morphology Comment Polychromasia Poikilocytosis Anisocytosis Macrocytosis Tear Drop Cells Ovalocytes RBC Morph Comment Sodium (136-145) mEq/L Potassium (3.5-5.1) mEq/L Chloride (98-107) mEq/L Carbon Dioxide (21-32) mEq/L Anion Gap (5-15) BUN (7-18) mg/dL Creatinine (0.55-1.02) mg/dL Est Cr Clr Drug Dosing mL/min Estimated GFR (MDRD) (>60) mL/min BUN/Creatinine Ratio (14-18) Glucose (83-115) mg/dL Calcium (8.5-10.1) mg/dL Magnesium (1.8-2.4) mg/dl Total Bilirubin (0.2-1.0) mg/dL AST (15-37) U/L ALT (14-59) U/L Alkaline Phosphatase (46-116) U/L Total Protein (6.4-8.2) g/dl Albumin (3.4-5.0) g/dl Globulin gm/dL Albumin/Globulin Ratio (1-2) SARS-CoV-2 RNA (BALA) Negative (NEGATIVE) Blood Type Gel Antibody Screen Crossmatch See Detail Result Diagrams: 04/04/20 18:10 04/04/20 18:10 Sepsis Event Note - Evaluation Sepsis Screening Result: No Definite Risk - Focused Exam Vital Signs: Vital Signs Temp Pulse Pulse Resp BP BP Pulse Ox 04/05/20 05:04 37.2 C 92 18 129/60 93 L 04/05/20 05:00 37.3 C 81 18 141/68 H 96 04/05/20 04:56 37.3 C 82 18 141/68 H 96 04/05/20 02:48 37.3 C 81 18 141/68 H 04/05/20 02:47 37.2 C 82 18 128/57 L 96 04/05/20 02:46 37.2 C 85 18 128/57 L 96 04/05/20 02:34 36.9 C 81 18 135/53 L 90 L 04/05/20 00:33 37.2 C 91 18 143/71 H 91 L 04/05/20 00:30 36.9 C 83 18 135/53 L 93 L 04/04/20 23:43 37.2 C 92 18 143/71 H 04/04/20 23:28 36.7 C 81 18 126/63 92 L 04/04/20 22:51 36.9 C 76 18 147/66 H 91 L 04/04/20 22:35 37.0 C 79 18 155/64 H 99 04/04/20 22:15 36.7 C 85 18 126/63 04/04/20 22:14 36.9 C 80 18 147/66 H 96 04/04/20 22:10 36.8 C 91 16 150/74 H 04/04/20 22:00 36.8 C 78 16 139/53 L 94 L - Problem List (1) Pancytopenia SNOMED Code(s): 939662183 ICD Code: D61.818 - OTHER PANCYTOPENIA Status: Chronic Priority: High Current Visit: Yes Problem Details: Likely myelodysplastic syndrome (2) Alzheimer's dementia SNOMED Code(s): 83781844 ICD Code: G30.9 - ALZHEIMER'S DISEASE, UNSPECIFIED; F02.80 - DEMENTIA IN OTH DISEASES CLASSD ELSWHR W/O BEHAVRL DISTURB Status: Chronic Priority: High Current Visit: Yes Qualifiers: Alzheimer's disease onset: late-onset Dementia behavioral disturbance: without behavioral disturbance Qualified Code(s): G30.1 - Alzheimer's disease with late onset; F02.80 - Dementia in other diseases classified elsewhere without behavioral disturbance (3) Hypomagnesemia syndrome SNOMED Code(s): 737278846 ICD Code: E83.42 - HYPOMAGNESEMIA Status: Chronic Priority: High Current Visit: Yes (4) Severe anemia SNOMED Code(s): 320340293 ICD Code: D64.9 - ANEMIA, UNSPECIFIED Status: Chronic Priority: High Current Visit: Yes Problem List Initiated/Reviewed/Updated: Yes Orders Last 24hrs: Active Orders 24 hr Category Date Time Status Admission Status [Patient Status] [ADT] Routine ADT 04/04/20 22:13 Active Bedrest Bathroom Privileges [RC] ASDIRECTED Care 04/05/20 03:24 Active Orthostatic Vital Signs [RC] ASDIRECTED Care 04/04/20 17:55 Active General [Regular Diet] [DIET] Diet 04/05/20 Breakfast Active Chest 1V Frontal [CR] Stat Exams 04/04/20 17:54 Taken BASIC METABOLIC PANEL,BMP [CHEM] Routine Lab 04/05/20 05:00 Ordered CBC WITH AUTO DIFF [HEME] Routine Lab 04/05/20 05:00 Ordered CULTURE BLOOD [BC] Stat Lab 04/04/20 21:19 Received CULTURE BLOOD [BC] Stat Lab 04/04/20 21:30 Received Sodium Chloride 0.9% [Normal Saline] 1,000 ml Med 04/04/20 20:15 Active IV ASDIRECTED Blood Culture x2 Reflex Set [OM.PC] Stat Ot 04/04/20 20:37 Ordered Transfuse PRBC [Transfuse Red Blood Cells] [COMM] Stat Oth 04/04/20 18:45 Ordered Transfuse PRBC [Transfuse Red Blood Cells] [COMM] Stat Oth 04/04/20 20:03 Ordered Transfuse PRBC [Transfuse Red Blood Cells] [COMM] Stat Ot 04/04/20 20:33 Ordered Transfuse Red Blood Cells [COMM] Stat Ot 04/04/20 20:33 Ordered Code Status [Resuscitation Status] Routine Resus Stat 04/05/20 03:26 Ordered Medication Orders Sodium Chloride (Normal Saline) 1,000 mls @ 125 mls/hr IV ASDIRECTED [facility] [place] Assessment/Plan Comment:: The patient is a chronically ill 80-year-old lady who had been admitted primarily out of concern for anemia. The patient had 2 units of packed red blood cells transfused to the emergency department. I have ordered repeat laboratory studies after equilibration in order to verify the patient's anemia. The patient's CBC is consistent with myelodysplastic syndrome however, this has not been completely diagnosed as patient's daughter has refused to have a bone marrow biopsy. The patient will also be kept on neutropenic precautions. She is said that this is due to severe pain and general anesthesia associated with it. The patient also has hypomagnesemia and I have ordered the patient to have 2 g of magnesium IV. Repeat laboratory studies have been ordered in the morning to help verify her anemia, pancytopenia and electrolytes. The patient will be kept on a regular diet as tolerated. I have also ordered physical therapy, Occupational Therapy and home health to evaluate the patient for possible safe discharge. I feel at this time due to the patient's myelodysplastic syndrome as well as her advanced Alzheimer that her prognosis is poor. I would recommend that the patient be considered for intermediate facility. The patient should be appropriate for discharge in 1 to 2 days depending on the stability of her hemoglobin. - Mortality Measure Prognosis:: Poor
[2020-04-05] MEDS: Sodium Chloride 0.9% 1,000 ML IV SCH (08:07)
[2020-04-05] MEDS ORDERED: Magnesium Sulfate/Water 2 GM/50 ML BAG IV ONE (09:01)
[2020-04-05] MEDS: HYDROCHLOROTHIAZIDE PO SCH (09:57)
[2020-04-05] MEDS: TRIAMTERENE PO SCH (09:57)
[2020-04-05] MEDS: SERTRALINE 100 MG PO SCH (09:58)
[2020-04-05] MEDS: POTASSIUM CHLORIDE 20 MEQ PO SCH (09:58)
[2020-04-05] MEDS: VITAMIN K2 PO SCH (09:59)
[2020-04-05] MEDS: VITAMIN D3 PO SCH (09:59)
[2020-04-05] MEDS: CALCITRIOL 0.25 MCG PO SCH (09:59)
[2020-04-05] MEDS: DONEPEZIL 10 MG PO SCH (09:59)
--- NOTE | 2020-04-05 09:59 | CR ---
Chest: Portable view of the chest was obtained. Comparison: Prior chest x-ray of 09/08/17. Heart size and mediastinum are within normal limits. Small hiatal hernia is noted. Azygos lobe is noted within the right upper chest. No acute parenchymal change is seen. Bony structures are grossly intact. Impression: 1. Findings as noted above which are stable. 2. Nothing acute is appreciated. Diagnostic code #2
[2020-04-05] MEDS: Metoprolol Succinate 50 MG Tab.ER PO SCH (10:02)
[2020-04-05] MEDS ORDERED: Acetaminophen 325 MG Tab PO SCH (21:00)
[2020-04-05] MEDS ORDERED: Melatonin 3 MG Tab PO SCH (21:00)
[2020-04-06] MEDS ORDERED: LEVOTHYROXINE 137 MCG PO SCH (06:00)
[2020-04-06] MEDS: TRIAMTERENE PO SCH (08:39)
[2020-04-06] MEDS: Metoprolol Succinate 50 MG Tab.ER PO SCH (08:39)
[2020-04-06] MEDS: HYDROCHLOROTHIAZIDE PO SCH (08:39)
[2020-04-06] MEDS: CALCITRIOL 0.25 MCG PO SCH (08:40)
[2020-04-06] MEDS: SERTRALINE 100 MG PO SCH (08:42)
--- NOTE | 2020-04-06 08:43 | PCM.PN ---
- General Info Date of Service: 04/06/20 Admission Dx/Problem (Free Text): Admission Diagnosis/Problem Admission Diagnosis/Problem Anemia, advanced Alzheimer's disease, pancytopenia likely myelodysplastic syndrome Subjective Update: Patient has fatigue. Daughter states that she has had increasing fatigue over the last few months. White count continues to be significantly decreased out 1.5 with an ANC of 160. Her hemoglobin decreased again to 6.9 from 8.0 requi ring another unit of packed red blood cells. Renal function continues to be poor with estimated GFR of 23. Patient has had no further known maroon-colored stools overnight. Functional Status: Reports: Pain Controlled - Review of Systems General: Reports: Fatigue HEENT: Reports: No Symptoms Pulmonary: Reports: No Symptoms Cardiovascular: Reports: No Symptoms Gastrointestinal: Reports: No Symptoms Musculoskeletal: Reports: No Symptoms Neurological: Reports: Other (Memory loss) - Patient Data Vitals - Most Recent: Last Vital Signs Temp 98.2 F 04/06/20 07:20 Pulse 67 04/06/20 07:20 Resp 16 04/06/20 07:20 BP 112/55 L 04/06/20 07:20 Pulse Ox 93 L 04/06/20 07:20 Orthostatic Blood Pressure [ 115/97 Standing] Orthostatic Blood Pressure [ 138/92 Sitting] Orthostatic Blood Pressure [ 149/67 Supine] Weight - Most Recent: 179 lb 12.8 oz I&O - Last 24 Hours: Intake & Output 04/05/20 04/06/20 04/06/20 22:59 06:59 14:59 Intake Total 1150 775 Output Total 800 1500 Balance 350 -725 Lab Results Last 24 Hours: Laboratory Results - last 24 hr 04/04/20 04/05/20 04/05/20 Range/Units 20:19 09:04 09:04 WBC 1.20 L* (3.98-10.04) K/mm3 RBC 2.59 L (3.98-5.22) M/mm3 Hgb 8.0 L D (11.2-15.7) gm/dl Hct 23.9 L (34.1-44.9) % MCV 92.3 D (79.4-94.8) fl MCH 30.9 (25.6-32.2) pg MCHC 33.5 (32.2-35.5) g/dl RDW Std Deviation 47.8 H (36.4-46.3) fL Plt Count 21 L* (182-369) K/mm3 MPV TNP Neut % (Auto) 9.2 L (34.0-71.1) % Lymph % (Auto) 79.2 H (19.3-51.7) % Eagle % (Auto) 10.8 (4.7-12.5) % Eos % (Auto) 0.8 (0.7-5.8) Baso % (Auto) 0.0 L (0.1-1.2) % Neut # (Auto) 0.11 L (1.56-6.13) K/mm3 Lymph # (Auto) 0.95 L (1.18-3.74) K/mm3 Eagle # (Auto) 0.13 L (0.24-0.36) K/mm3 Eos # (Auto) 0.01 L (0.04-0.36) K/mm3 Baso # (Auto) 0.00 L (0.01-0.08) K/mm3 Manual Slide Review Abnormal smear Sodium 141 (136-145) mEq/L Potassium 3.9 (3.5-5.1) mEq/L Chloride 105 (98-107) mEq/L Carbon Dioxide 23 (21-32) mEq/L Anion Gap 16.9 H (5-15) BUN 40 H (7-18) mg/dL Creatinine 1.7 H (0.55-1.02) mg/dL Est Cr Clr Drug Dosing 20.53 mL/min Estimated GFR (MDRD) 29 (>60) mL/min BUN/Creatinine Ratio 23.5 H (14-18) Glucose 102 (83-115) mg/dL Calcium 9.2 (8.5-10.1) mg/dL Total Bilirubin (0.2-1.0) mg/dL AST (15-37) U/L ALT (14-59) U/L Alkaline Phosphatase (46-116) U/L Total Protein (6.4-8.2) g/dl Albumin (3.4-5.0) g/dl Globulin gm/dL Albumin/Globulin Ratio (1-2) Crossmatch See Detail 04/06/20 04/06/20 Range/Units 05:20 05:20 WBC 1.54 L* (3.98-10.04) K/mm3 RBC 2.27 L (3.98-5.22) M/mm3 Hgb 6.9 L* (11.2-15.7) gm/dl Hct 21.1 L (34.1-44.9) % MCV 93.0 (79.4-94.8) fl MCH 30.4 (25.6-32.2) pg MCHC 32.7 (32.2-35.5) g/dl RDW Std Deviation 52.4 H (36.4-46.3) fL Plt Count 209 D (182-369) K/mm3 MPV 10.6 Neut % (Auto) 10.5 L (34.0-71.1) % Lymph % (Auto) 81.8 H (19.3-51.7) % Eagle % (Auto) 5.8 (4.7-12.5) % Eos % (Auto) 1.9 (0.7-5.8) Baso % (Auto) 0.0 L (0.1-1.2) % Neut # (Auto) 0.16 L (1.56-6.13) K/mm3 Lymph # (Auto) 1.26 (1.18-3.74) K/mm3 Eagle # (Auto) 0.09 L (0.24-0.36) K/mm3 Eos # (Auto) 0.03 L (0.04-0.36) K/mm3 Baso # (Auto) 0.00 L (0.01-0.08) K/mm3 Manual Slide Review Abnormal smear Sodium 142 (136-145) mEq/L Potassium 3.6 (3.5-5.1) mEq/L Chloride 107 (98-107) mEq/L Carbon Dioxide 22 (21-32) mEq/L Anion Gap 16.6 H (5-15) BUN 48 H (7-18) mg/dL Creatinine 2.1 H (0.55-1.02) mg/dL Est Cr Clr Drug Dosing 16.62 mL/min Estimated GFR (MDRD) 23 (>60) mL/min BUN/Creatinine Ratio 22.9 H (14-18) Glucose 97 (83-115) mg/dL Calcium 9.3 (8.5-10.1) mg/dL Total Bilirubin 0.8 (0.2-1.0) mg/dL AST 20 (15-37) U/L ALT 19 (14-59) U/L Alkaline Phosphatase 63 (46-116) U/L Total Protein 6.7 (6.4-8.2) g/dl Albumin 3.1 L (3.4-5.0) g/dl Globulin 3.6 gm/dL Albumin/Globulin Ratio 0.9 L (1-2) Crossmatch Carl Results Last 24 Hours: Microbiology 04/04/20 21:30 Aerobic Blood Culture - Preliminary Blood - Venous - Lab Draw NO GROWTH AFTER 1 DAY Anaerobic Blood Culture - Preliminary NO GROWTH AFTER 1 DAY 04/04/20 21:19 Aerobic Blood Culture - Preliminary Blood - Venous NO GROWTH AFTER 1 DAY Anaerobic Blood Culture - Final Med Orders - Current: Current Medications Acetaminophen (Tylenol) 975 mg PO BEDTIME [facility] Last Admin: 04/05/20 21:04 Dose: 975 mg Documented by: Calcitriol (Rocaltrol) 0.25 mcg PO DAILY [facility] Last Admin: 04/05/20 09:59 Dose: 0.25 mcg Documented by: Donepezil HCl (Aricept) 10 mg PO DAILY [facility] Last Admin: 04/05/20 09:59 Dose: 10 mg Documented by: Sodium Chloride (Normal Saline) 1,000 mls @ 75 mls/hr IV ASDIRECTED [facility] Last Infusion: 04/05/20 09:50 Dose: 75 mls/hr Documented by: Melatonin (Melatonin) 6 mg PO BEDTIME [facility] Last Admin: 04/05/20 20:14 Dose: 6 mg Documented by: Metoprolol Succinate (Toprol Xl) 50 mg PO DAILY [facility] Last Admin: 04/05/20 10:02 Dose: 50 mg Documented by: Levothyroxine 137 (Mcg Tab Ptom) 0 each PO ACBREAKFAST [facility] Last Admin: 04/06/20 07:06 Dose: 1 each Documented by: Sertraline 100 Mg (Tab Ptom) 0 mg PO DAILY [facility] Last Admin: 04/05/20 09:58 Dose: 1 mg Documented by: Vitamin D3/Vitamin K2 [K2 Plus D3 Tablet] Ptom 1 tab PO DAILY [facility] Last Admin: 04/05/20 09:59 Dose: 1 tab Documented by: Arnicare Cream 0 each TOP Q2H PRN PRN Reason: bruising/pain Potassium Chloride (Klor-Con M20) 20 meq PO DAILY [facility] Last Admin: 04/05/20 09:58 Dose: 20 meq Documented by: Triamterene/Hydrochlorothiazide (Dyazide 25-37.5 Mg) 1 each PO DAILY [facility] Last Admin: 04/05/20 09:57 Dose: 1 each Documented by: Discontinued Medications Lactated Ringer's (Ringers, Lactated) 1,000 mls @ 999 mls/hr IV .BOLUS ONE Stop: 04/04/20 19:23 Last Admin: 04/05/20 02:12 Dose: Not Given Documented by: Lactated Ringer's (Ringers, Lactated) 500 mls @ 999 mls/hr IV .BOLUS ONE Stop: 04/04/20 19:22 Last Admin: 04/04/20 19:55 Dose: 999 mls/hr Documented by: Lactated Ringer's (Ringers, Lactated) 1,000 mls @ 125 mls/hr IV ASDIRECTED [facility] Levofloxacin/Dextrose 750 mg/ (Premix) 150 mls @ 100 mls/hr IV ONETIME ONE Stop: 04/04/20 21:45 Last Admin: 04/05/20 00:32 Dose: 100 mls/hr Documented by: Magnesium Sulfate (Magnesium Sulfate In Water Premix) 2 gm in 50 mls @ 25 mls/hr IV ONETIME ONE Stop: 04/05/20 11:00 Last Admin: 04/05/20 09:55 Dose: 25 mls/hr Documented by: - Exam General: Alert. No: Oriented HEENT: Pupils Equal, Mucous Membr. Moist/[place] Lungs: Clear to Auscultation, Normal Respiratory Effort Cardiovascular: Regular Rate, Regular Rhythm Extremities: Normal Inspection, Normal Capillary Refill Skin: Other (Pale) Sepsis Event Note - Evaluation Sepsis Screening Result: No Definite Risk - Focused Exam Vital Signs: Vital Signs Temp Pulse Pulse Resp BP BP Pulse Ox 04/06/20 07:20 98.2 F 67 16 112/55 L 93 L 04/06/20 05:11 98.1 F 63 18 126/75 92 L 04/05/20 22:32 99.3 F 79 18 162/70 H 91 L 04/05/20 21:02 99.1 F 80 17 146/71 H 94 L 04/05/20 21:01 99.3 F 81 18 162/70 H 91 L 04/05/20 20:54 99.3 F 80 18 146/69 H 90 L - Problem List & Annotations (1) Hypomagnesemia syndrome SNOMED Code(s): 680651755 Code(s): E83.42 - HYPOMAGNESEMIA Status: Chronic Priority: High Current Visit: Yes (2) Severe neutropenia SNOMED Code(s): 193865125 Code(s): D70.9 - NEUTROPENIA, UNSPECIFIED Status: Acute Current Visit: Yes (3) Severe anemia SNOMED Code(s): 849350177 Code(s): D64.9 - ANEMIA, UNSPECIFIED Status: Chronic Priority: High Current Visit: Yes (4) Thrombocytopenia SNOMED Code(s): 544464900 Code(s): D69.6 - THROMBOCYTOPENIA, UNSPECIFIED Status: Acute Current Visit: Yes (5) Chronic renal insufficiency SNOMED Code(s): 050060281 Code(s): N18.9 - CHRONIC KIDNEY DISEASE, UNSPECIFIED Status: Acute Current Visit: Yes (6) Pancytopenia SNOMED Code(s): 428464119 Code(s): D61.818 - OTHER PANCYTOPENIA Status: Chronic Priority: High Current Visit: Yes Annotation/Comment:: Likely myelodysplastic syndrome (7) Alzheimer's dementia SNOMED Code(s): 92272389 Code(s): G30.9 - ALZHEIMER'S DISEASE, UNSPECIFIED; F02.80 - DEMENTIA IN OTH DISEASES CLASSD ELSWHR W/O BEHAVRL DISTURB Status: Chronic Priority: High Current Visit: Yes Qualifiers: Alzheimer's disease onset: late-onset Dementia behavioral disturbance: without behavioral disturbance Qualified Code(s): G30.1 - Alzheimer's disease with late onset; F02.80 - Dementia in other diseases classified elsewhere without behavioral disturbance - Problem List Review Problem List Initiated/Reviewed/Updated: Yes - My Orders Last 24 Hours: My Active Orders 04/06/20 08:36 Blood Transfusion Reflex Orders [OM.PC] Routine Transfuse Red Blood Cells [COMM] Stat 04/06/20 14:00 CBC WITH AUTO DIFF [HEME] Timed - Plan Plan:: 04/05/2020 The patient is a chronically ill 80-year-old lady who had been admitted primarily out of concern for anemia. The patient had 2 units of packed red blood cells transfused to the emergency department. I have ordered repeat laboratory studies after equilibration in order to verify the patient's anemia. The patient's CBC is consistent with myelodysplastic syndrome however, this has not been completely diagnosed as patient's daughter has refused to have a bone marrow biopsy. The patient will also be kept on neutropenic precautions. She is said that this is due to severe pain and general anesthesia associated with it. The patient also has hypomagnesemia and I have ordered the patient to have 2 g of magnesium IV. Repeat laboratory studies have been ordered in the morning to help verify her anemia, pancytopenia and electrolytes. The patient will be kept on a regular diet as tolerated. I have also ordered physical therapy, Occupational Therapy and home health to evaluate the patient for possible safe discharge. I feel at this time due to the patient's myelodysplastic syndrome as well as her advanced Alzheimer that her prognosis is poor. I would recommend that the patient be considered for residential facility. The patient should be appropriate for discharge in 1 to 2 days depending on the stability of her hemoglobin. 04/06/2020 Patient continues to have significant fatigue, but appetite is good. She did require 1 more unit of packed red blood cells this morning secondary to a hemoglobin of 6.9. ANC is still significantly reduced at 120 placing her at severe neutropenia. Platelets did rebound to 209,000. Renal function continues to be significantly decreased with an estimated GFR of 23 and creatinine of 2. 1. I discussed the patient's findings with Dr. Gayle in oncology who recommended she get a bone marrow biopsy if they want to pursue aggressive treatment. I discussed that with her and her daughter and her daughter stated that she was going to discuss this with the rest of the family. If she needs a bone marrow biopsy she will need to go to [place] to have that done. We will continue to treat her supportively until further decisions are made. She is on reverse isolation secondary to her severe neutropenia. Daughter is in the room with her. I did explain to her and her daughter that her long-term outcome is poor. Patient did have a T-max today of 99.7. Patient also has severe Alzheimer's. She should be able to have compression stockings for VTE prophylaxis without complication now that her platelets are above 100,000. I would avoid chemoprophylaxis secondary to the GI bleed. Patient will have a repeat hemoglobin 4 hours after the end of the blood transfusion.
[2020-04-06] MEDS: DONEPEZIL 10 MG PO SCH (08:56)
[2020-04-06] MEDS: POTASSIUM CHLORIDE 20 MEQ PO SCH (08:57)
[2020-04-06] MEDS: VITAMIN D3 PO SCH (08:57)
[2020-04-06] MEDS: VITAMIN K2 PO SCH (08:57)
[2020-04-06] MEDS ORDERED: Sodium Chloride 0.9% 250 ML IV SCH (10:00)
[2020-04-06] MEDS: Sodium Chloride 0.9% 1,000 ML IV SCH (14:10)
--- NOTE | 2020-04-06 17:14 | PCM.SN.2 ---
- Free Text/Narrative Note: After discussion with the family Vickie decided that she wanted to go home on comfort measures. We will contact hospice and asked for them to evaluate the patient at home. She and family understand the risk of infection associated with discharge especially if she is in contact with someone that is sick.
--- NOTE | 2020-04-06 17:15 | PCM.DCSUM1 ---
Discharge Summary - Hospital Course HPI Initial Comments: The patient is a chronically ill 80-year-old lady who had presented to the emergency department with a complaint of dizziness and lightheadedness from her daughter. Patient has a history of probable myelodysplastic syndrome and has refused a bone marrow biopsy. The patient's hemoglobin was at 5.7 g/dL and her white blood cell count was also at 1.32 thousand. His platelets were also critically low at 23,000. The patient also has moderate to advanced Alzheimer's disease and has not been able to participate in any meaningful way with her history and physical. The patient's daughter is in the room with her and has supplied most of the information. The patient's daughter has also reported that her mother had severe dizziness and lightheadedness and the near syncopal episode. The patient is also being followed by nephrology for her stage IV chronic kidney disease. The patient's daughter reports that the patient lives at home and she lives with her now. The patient also follows up with hematology. The patient's daughter also reports that her mother has been in sharp decline with her health over the past year. Assessment/Plan Comment:: The patient is a chronically ill 80-year-old lady who had been admitted [facility] out of concern for anemia. The patient had 2 units of packed red blood cells transfused to the emergency department. I have ordered repeat laboratory studies after equilibration in order to verify the patient's anemia. The patient's CBC is consistent with myelodysplastic syndrome however, this has not been completely diagnosed as patient's daughter has refused to have a bone marrow biopsy. The patient will also be kept on neutropenic precautions. She is said that this is due to severe pain and general anesthesia associated with it. The patient also has hypomagnesemia and I have ordered the patient to have 2 g of magnesium IV. Repeat laboratory studies have been ordered in the morning to help verify her anemia, pancytopenia and electrolytes. The patient will be kept on a regular diet as tolerated. I have also ordered physical therapy, Occupational Therapy and home health to evaluate the patient for possible safe discharge. I feel at this time due to the patient's myelodysplastic syndrome as well as her advanced Alzheimer that her prognosis is poor. I would recommend that the patient be considered for penitentiary facility. The patient should be appropriate for discharge in 1 to 2 days depending on the stability of her hemoglobin. Addendum: The charge nurse had reported that the patient had a large maroon- colored bowel movement that smelled of blood. Because of her severe thrombocytopenia 4 units of single donor platelets were ordered for her. Diagnosis: Stroke: No - Discharge Data Discharge Date: 04/06/20 Discharge Disposition: Home, Self-Care 01 Condition: Fair - Referral to Home Health Primary Care Physician: Flower Johnson LAP CUTTER - Discharge Diagnosis/Problem(s) (1) Hypomagnesemia syndrome SNOMED Code(s): 135421420 ICD Code: E83.42 - HYPOMAGNESEMIA Status: Chronic Priority: High Current Visit: Yes (2) Severe neutropenia SNOMED Code(s): 930838341 ICD Code: D70.9 - NEUTROPENIA, UNSPECIFIED Status: Acute Current Visit: Yes (3) Severe anemia SNOMED Code(s): 105798042 ICD Code: D64.9 - ANEMIA, UNSPECIFIED Status: Chronic Priority: High Current Visit: Yes (4) Thrombocytopenia SNOMED Code(s): 004077483 ICD Code: D69.6 - THROMBOCYTOPENIA, UNSPECIFIED Status: Acute Current Visit: Yes (5) Chronic renal insufficiency SNOMED Code(s): 987945774 ICD Code: N18.9 - CHRONIC KIDNEY DISEASE, UNSPECIFIED Status: Acute Current Visit: Yes (6) Pancytopenia SNOMED Code(s): 530764501 ICD Code: D61.818 - OTHER PANCYTOPENIA Status: Chronic Priority: High Current Visit: Yes Problem Details: Likely myelodysplastic syndrome (7) Alzheimer's dementia SNOMED Code(s): 87789346 ICD Code: G30.9 - ALZHEIMER'S DISEASE, UNSPECIFIED; F02.80 - DEMENTIA IN OTH DISEASES CLASSD ELSWHR W/O BEHAVRL DISTURB Status: Chronic Priority: High Current Visit: Yes Qualifiers: Alzheimer's disease onset: late-onset Dementia behavioral disturbance: without behavioral disturbance Qualified Code(s): G30.1 - Alzheimer's disease with late onset; F02.80 - Dementia in other diseases classified elsewhere without behavioral disturbance - Patient Summary/Data Consults: Consultations 04/05/20 08:59 Consult to Home Health [CONS] Routine OT Evaluation and Treatment [CONS] Routine PT Evaluation and Treatment [CONS] Routine Hospital Course: 04/06/2020 Patient continues to have significant fatigue, but appetite is good. She did require 1 more unit of packed red blood cells this morning secondary to a hemoglobin of 6.9. ANC is still significantly reduced at 120 placing her at severe neutropenia. Platelets did rebound to 209,000. Renal function continues to be significantly decreased with an estimated GFR of 23 and creatinine of 2.1. I discussed the patient's findings with Dr. Gayle in oncology who recommended she get a bone marrow biopsy if they want to pursue aggressive treatment. I discussed that with her and her daughter and her daughter stated that she was going to discuss this with the rest of the family. If she needs a bone marrow biopsy she will need to go to [place] to have that done. We will continue to treat her supportively until further decisions are made. She is on reverse isolation secondary to her severe neutropenia. Daughter is in the room with her. I did explain to her and her daughter that her long-term outcome is poor. Patient did have a T-max today of 99.7. Patient also has severe Alzheimer's. She should be able to have compression stockings for VTE prophylaxis without complication now that her platelets are above 100,000. I would avoid chemoprophylaxis secondary to the GI bleed. Patient will have a repeat hemoglobin 4 hours after the end of the blood transfusion. - Patient Instructions Diet: Usual Diet as Tolerated Activity: As Tolerated Driving: Do Not Drive Showering/Bathing: May Shower Other/Special Instructions: Hospice will be consulted and will contact you for assessment. Follow-up with Dr. Gayle and your primary care provider. Discuss with hospitalist, Dr. Gayle, and ARLETTE Marsh which medications she would like to continue. - Discharge Plan *PRESCRIPTION DRUG MONITORING PROGRAM REVIEWED*: Not Applicable *COPY OF PRESCRIPTION DRUG MONITORING REPORT IN PATIENT FÉLIX: Not Applicable Home Medications: Home Meds Acetaminophen [Tylenol Arthritis Pain] 1,300 mg PO DAILY 10/02/13 [History] Donepezil [Aricept] 10 mg PO DAILY 10/02/13 [History] Triamterene/Hydrochlorothiazid [Triamterene-HCTZ 37.5-25 MG] 1 tab PO DAILY 10/02/13 [History] Melatonin [Melatin] 5 mg PO BEDTIME 03/24/17 [History] Levothyroxine 137 mcg PO ACBREAKFAST 09/09/17 [History] Sertraline HCl 100 mg PO BEDTIME 09/09/17 [History] Metoprolol Succinate [Toprol XL] 50 mg PO DAILY 04/04/20 [History] Potassium Chloride 20 meq PO DAILY 04/04/20 [History] Vitamin D3/Vitamin K2 (Mk4) [K2 Plus D3 Tablet] 1 tab PO DAILY 04/04/20 [History] calcitrioL [Calcitriol] 0.25 mcg PO DAILY 04/04/20 [History] Non-Formulary Medication [NF Drug] 1 appful TOP Q2H PRN 04/05/20 [History] Acetaminophen [Tylenol] 975 mg PO BEDTIME tablet 04/06/20 [Rx] Oxygen Therapy Mode: Room Air Patient Handouts: White Blood Cell Count Test Forms: ED Department Discharge Referrals: Flower Johnson LAP CUTTER [Primary Care Provider] - (Please call and schedule and apt. with Flower Johnson in 7 days. ) Isak Gayle MD [Ordering Only Provider] - - Discharge Summary/Plan Comment DC Time >30 min.: Yes Discharge Summary/Plan Comment: Over an hour today was spent with the patient and her family discussing end-of-life treatment, further treatment for her presumed myelodysplastic syndrome, discussion with Dr. Gayle regards to her prognosis and treatment, and in discharge. - General Info Date of Service: 04/06/20 Admission Dx/Problem (Free Text: Admission Diagnosis/Problem Admission Diagnosis/Problem Anemia, advanced Alzheimer's disease, pancytopenia likely myelodysplastic syndrome Subjective Update: See accompanying progress note. - Patient Data Vitals - Most Recent: Last Vital Signs Temp 99.3 F 04/06/20 12:03 Pulse 64 04/06/20 12:03 Resp 14 04/06/20 12:03 BP 125/87 04/06/20 12:03 Pulse Ox 90 L 04/06/20 12:03 Orthostatic Blood Pressure [ 115/97 Standing] Orthostatic Blood Pressure [ 138/92 Sitting] Orthostatic Blood Pressure [ 149/67 Supine] Weight - Most Recent: 179 lb 12.8 oz I&O - Last 24 hours: Intake & Output 04/06/20 04/06/20 04/06/20 06:59 14:59 22:59 Intake Total 775 180 0 Output Total 1500 Balance -725 180 0 Lab Results - Last 24 hrs: Laboratory Results - last 24 hr 04/04/20 04/06/20 04/06/20 Range/Units 20:19 05:20 05:20 WBC 1.54 L* (3.98-10.04) K/mm3 RBC 2.27 L (3.98-5.22) M/mm3 Hgb 6.9 L* (11.2-15.7) gm/dl Hct 21.1 L (34.1-44.9) % MCV 93.0 (79.4-94.8) fl MCH 30.4 (25.6-32.2) pg MCHC 32.7 (32.2-35.5) g/dl RDW Std Deviation 52.4 H (36.4-46.3) fL Plt Count 209 D (182-369) K/mm3 MPV 10.6 (9.4-12.3) fl Neut % (Auto) 10.5 L (34.0-71.1) % Lymph % (Auto) 81.8 H (19.3-51.7) % [place] % (Auto) 5.8 (4.7-12.5) % Eos % (Auto) 1.9 (0.7-5.8) Baso % (Auto) 0.0 L (0.1-1.2) % Neut # (Auto) 0.16 L (1.56-6.13) K/mm3 Lymph # (Auto) 1.26 (1.18-3.74) K/mm3 [place] # (Auto) 0.09 L (0.24-0.36) K/mm3 Eos # (Auto) 0.03 L (0.04-0.36) K/mm3 Baso # (Auto) 0.00 L (0.01-0.08) K/mm3 Manual Slide Review Abnormal smear Sodium 142 (136-145) mEq/L Potassium 3.6 (3.5-5.1) mEq/L Chloride 107 (98-107) mEq/L Carbon Dioxide 22 (21-32) mEq/L Anion Gap 16.6 H (5-15) BUN 48 H (7-18) mg/dL Creatinine 2.1 H (0.55-1.02) mg/dL Est Cr Clr Drug Dosing 16.62 mL/min Estimated GFR (MDRD) 23 (>60) mL/min BUN/Creatinine Ratio 22.9 H (14-18) Glucose 97 (83-115) mg/dL Calcium 9.3 (8.5-10.1) mg/dL Magnesium (1.8-2.4) mg/dl Total Bilirubin 0.8 (0.2-1.0) mg/dL AST 20 (15-37) U/L ALT 19 (14-59) U/L Alkaline Phosphatase 63 (46-116) U/L Total Protein 6.7 (6.4-8.2) g/dl Albumin 3.1 L (3.4-5.0) g/dl Globulin 3.6 gm/dL Albumin/Globulin Ratio 0.9 L (1-2) Crossmatch See Detail 04/06/20 04/06/20 Range/Units 05:20 16:00 WBC 1.46 L* (3.98-10.04) K/mm3 RBC 2.89 L (3.98-5.22) M/mm3 Hgb 8.6 L D (11.2-15.7) gm/dl Hct 26.1 L (34.1-44.9) % MCV 90.3 (79.4-94.8) fl MCH 29.8 (25.6-32.2) pg MCHC 33.0 (32.2-35.5) g/dl RDW Std Deviation 56.0 H (36.4-46.3) fL Plt Count 205 (182-369) K/mm3 MPV 10.5 (9.4-12.3) fl Neut % (Auto) 11.7 L (34.0-71.1) % Lymph % (Auto) 75.3 H (19.3-51.7) % [place] % (Auto) 11.6 (4.7-12.5) % Eos % (Auto) 1.4 (0.7-5.8) Baso % (Auto) 0.0 L (0.1-1.2) % Neut # (Auto) 0.17 L (1.56-6.13) K/mm3 Lymph # (Auto) 1.10 L (1.18-3.74) K/mm3 [place] # (Auto) 0.17 L (0.24-0.36) K/mm3 Eos # (Auto) 0.02 L (0.04-0.36) K/mm3 Baso # (Auto) 0.00 L (0.01-0.08) K/mm3 Manual Slide Review Abnormal smear Sodium (136-145) mEq/L Potassium (3.5-5.1) mEq/L Chloride (98-107) mEq/L Carbon Dioxide (21-32) mEq/L Anion Gap (5-15) BUN (7-18) mg/dL Creatinine (0.55-1.02) mg/dL Est Cr Clr Drug Dosing mL/min Estimated GFR (MDRD) (>60) mL/min BUN/Creatinine Ratio (14-18) Glucose (83-115) mg/dL Calcium (8.5-10.1) mg/dL Magnesium 2.0 (1.8-2.4) mg/dl Total Bilirubin (0.2-1.0) mg/dL AST (15-37) U/L ALT (14-59) U/L Alkaline Phosphatase (46-116) U/L Total Protein (6.4-8.2) g/dl Albumin (3.4-5.0) g/dl Globulin gm/dL Albumin/Globulin Ratio (1-2) Crossmatch MARGARET Results - Last 24 hrs: Microbiology 04/04/20 21:30 Aerobic Blood Culture - Preliminary Blood - Venous - Lab Draw NO GROWTH AFTER 1 DAY Anaerobic Blood Culture - Preliminary NO GROWTH AFTER 1 DAY 04/04/20 21:19 Aerobic Blood Culture - Preliminary Blood - Venous NO GROWTH AFTER 1 DAY Anaerobic Blood Culture - Final Med Orders - Current: Current Medications Acetaminophen (Tylenol) 975 mg PO BEDTIME [facility] Last Admin: 04/05/20 21:04 Dose: 975 mg Documented by: Calcitriol (Rocaltrol) 0.25 mcg PO DAILY [facility] Last Admin: 04/06/20 08:40 Dose: 0.25 mcg Documented by: Donepezil HCl (Aricept) 10 mg PO DAILY [facility] Last Admin: 04/06/20 08:56 Dose: 10 mg Documented by: Melatonin (Melatonin) 6 mg PO BEDTIME [facility] Last Admin: 04/05/20 20:14 Dose: 6 mg Documented by: Metoprolol Succinate (Toprol Xl) 50 mg PO DAILY [facility] Last Admin: 04/06/20 08:39 Dose: 50 mg Documented by: Levothyroxine 137 (Mcg Tab Ptom) 0 each PO ACBREAKFAST [facility] Last Admin: 04/06/20 07:06 Dose: 1 each Documented by: Sertraline 100 Mg (Tab Ptom) 0 mg PO DAILY [facility] Last Admin: 04/06/20 08:42 Dose: 100 mg Documented by: Vitamin D3/Vitamin K2 [K2 Plus D3 Tablet] Ptom 1 tab PO DAILY [facility] Last Admin: 04/06/20 08:57 Dose: 1 tab Documented by: Arnicare Cream 0 each TOP Q2H PRN PRN Reason: bruising/pain Potassium Chloride (Klor-Con M20) 20 meq PO DAILY [facility] Last Admin: 04/06/20 08:57 Dose: 20 meq Documented by: Triamterene/Hydrochlorothiazide (Dyazide 25-37.5 Mg) 1 each PO DAILY [facility] Last Admin: 04/06/20 08:39 Dose: 1 each Documented by: Discontinued Medications Lactated Ringer's (Ringers, Lactated) 1,000 mls @ 999 mls/hr IV .BOLUS ONE Stop: 04/04/20 19:23 Last Admin: 04/05/20 02:12 Dose: Not Given Documented by: Lactated Ringer's (Ringers, Lactated) 500 mls @ 999 mls/hr IV .BOLUS ONE Stop: 04/04/20 19:22 Last Admin: 04/04/20 19:55 Dose: 999 mls/hr Documented by: Lactated Ringer's (Ringers, Lactated) 1,000 mls @ 125 mls/hr IV ASDIRECTED [facility] Sodium Chloride (Normal Saline) 1,000 mls @ 75 mls/hr IV ASDIRECTED [facility] Last Admin: 04/06/20 14:10 Dose: 75 mls/hr Documented by: Levofloxacin/Dextrose 750 mg/ (Premix) 150 mls @ 100 mls/hr IV ONETIME ONE Stop: 04/04/20 21:45 Last Admin: 04/05/20 00:32 Dose: 100 mls/hr Documented by: Magnesium Sulfate (Magnesium Sulfate In Water Premix) 2 gm in 50 mls @ 25 mls/hr IV ONETIME ONE Stop: 04/05/20 11:00 Last Admin: 04/05/20 09:55 Dose: 25 mls/hr Documented by: Sodium Chloride (Normal Saline) 250 mls @ 100 mls/hr IV ASDIRECTED [facility] Last Admin: 04/06/20 10:08 Dose: 100 mls/hr Documented by: *Q Meaningful Use (DIS) - VTE *Q VTE Mechanical Contraindications *Q: At Risk for Falls VTE Pharmacological Contraindications *Q: Thrombocytopenia
[2020-04-06 18:16] VITALS: BP 118/71; PULSE 68
== END 2020-04-06 19:15 | disposition home or self-care (01) | DRG 812 ==
LOC: JD.ED 17:06 → JD.MS 22:13 → OBSVTOIN 04-06 13:27
PROVIDERS: ADMIT Family Medicine; ATTEND Family Medicine
PROC: 30233N1 Transfusion of Nonautologous Red Blood Cells into Peripheral Vein, Percutaneous Approach (ICD-10-PCS; principal; 2020-04-04)
PROC: 30233R1 Transfusion of Nonautologous Platelets into Peripheral Vein, Percutaneous Approach (ICD-10-PCS; 2020-04-04)
DX: D46.9 Myelodysplastic syndrome, unspecified (principal); D64.9 Anemia, unspecified; D61.818 Other pancytopenia; N18.4 Chronic kidney disease, stage 4 (severe); E83.42 Hypomagnesemia; D70.9 Neutropenia, unspecified; N18.9 Chronic kidney disease, unspecified; D69.6 Thrombocytopenia, unspecified; F02.80 Dementia in other diseases classified elsewhere, unspecified severity, without behavioral disturbance, psychotic disturbance, mood disturbance, and anxiety; Z79.890 Hormone replacement therapy; Z79.899 Other long term (current) drug therapy; Z79.82 Long term (current) use of aspirin; Z88.8 Allergy status to other drugs, medicaments and biological substances; H54.7 Unspecified visual loss; E78.00 Pure hypercholesterolemia, unspecified; I12.9 Hypertensive chronic kidney disease with stage 1 through stage 4 chronic kidney disease, or unspecified chronic kidney disease; R32 Unspecified urinary incontinence; G30.9 Alzheimer's disease, unspecified; M19.90 Unspecified osteoarthritis, unspecified site; G89.29 Other chronic pain; Z20.828 Contact with and (suspected) exposure to other viral communicable diseases; M54.9 Dorsalgia, unspecified; F41.9 Anxiety disorder, unspecified; F32.9 Major depressive disorder, single episode, unspecified; E03.9 Hypothyroidism, unspecified; E66.9 Obesity, unspecified; Z85.3 Personal history of malignant neoplasm of breast; Z90.89 Acquired absence of other organs; Z90.12 Acquired absence of left breast and nipple; Z98.890 Other specified postprocedural states; G30.1 Alzheimer's disease with late onset; Z20.822 Contact with and (suspected) exposure to COVID-19
CPT/HCPCS: 36415; 36430; 71045; 71045-26; 80048; 80053; 83735; 85007; 85025; 85027; 86850; 86900; 86901; 86922; 87040; 87086; 93005; 96365; 96366; 96367; 97162-GP; 99284; 99285-25; A9270-GY; G0378; J1956; J3475; J7030; J7050; J7120; P9016; P9017; P9034; U0002